=== PATIENT | female | born 1940 | race Caucasian/White ===

== ENCOUNTER 2017-03-15 04:07 | Emergency (ER) | payer OTHER ==
[~2017-03-15] VITALS: Ht 160 cm; Wt 77.1 kg
[2017-03-15] MEDS: KETOROLAC TROMETH 60MG/2ML VIAL IM ONE (05:30)
[2017-03-15 05:42] LABS: Urine RBC None Seen /hpf (0 - 4)
[2017-03-15 05:53] LABS: Urine Bilirubin Negative (Negative); Urine Blood Negative /uL (Negative); Urine Color Yellow (Yellow); Urine Glucose Normal (Normal); Urine Ketone Negative (Negative); Urine Nitrite Negative (Negative); Urine Squamous Epithelial Cell FEW /hpf (<5); Urine Urobilinogen Normal (Negative); Urine pH 7.5 (5.0-8.0)
[2017-03-15] MEDS: HYDROcodone-ACET 10/325MG TAB PO ONE ×2 (06:45→20:11)
[2017-03-15] MEDS: HYDROcodone-ACET 5/325MG TAB ONE (07:36)
[2017-03-15 09:42] LABS: Basophils # (auto) 0 uL; Basophils % (auto) 0.2 % (0.0-2.0); CONDITION Y; Eosinophils # (auto) 0.1 uL; Eosinophils % (auto) 0.8 % (0.0-7.0); Hematocrit 42.5 % (36.0-46.0); Hemoglobin 14.1 g/dL (12.2-16.2); Lymphocytes # (auto) 1.1 uL; Lymphocytes % (auto) 9.8 % (10.0-50.0); Mean Corpuscular Hemoglobin 28.7 pg (28.0-32.0); Mean Corpuscular Volume 86.9 fL (80.0-100.0); Mean Platelet Volume 7.9 fL (7.4-10.4); Monocytes # (auto) 0.7 uL; Monocytes % (auto) 6.5 % (0.0-12.0); Neutrophils # (auto) 9.2 uL; Neutrophils % (auto) 82.7 % (37.0-80.0); Platelet Count (auto) 240 10^3/uL (140-450); Red Cell Distribution Width 13.6 % (11.6-16.0); White Blood Cell 11.2 10^3/uL (4.4-10.8)
[2017-03-15 09:51] LABS: Albumin 3.6 g/dL (3.4-5.0); BUN/Creatinine Ratio 20.9; Bilirubin, Total 0.6 mg/dL (0.2-1.0); INR 0.99 (0.9-1.15); Partial Thromboplastin Time 24.3 sec (22.64-33.71); Potassium 3.5 mmol/L (3.5-5.1); Prothrombin Time 10.8 sec (9.37-12.3); Total Protein 6.6 g/dL (6.4-8.2)
[2017-03-15] MEDS: SODIUM CHLORIDE 0.9% 1,000 ML IV ONE (10:00)
[2017-03-15] MEDS: MORPHINE SULF INJ 2 MG/ML SYRINGE 1ML IV ONE ×2 (10:00→15:41)
[2017-03-15] MEDS: ONDANSETRON HCL 4 MG/2 ML VIAL IV ONE (10:00)
[2017-03-15] MEDS ORDERED: LOVA40TA72 PO (10:28)
[2017-03-15] MEDS ORDERED: METO25TA3 PO (10:28)
[2017-03-15] MEDS ORDERED: DYA375C PO (10:28)
[2017-03-15] MEDS ORDERED: FLUO40CA PO (10:28)
[2017-03-15] MEDS ORDERED: LISI40TA PO (10:28)
[2017-03-15] MEDS: PROMETHAZINE HCL 25 MG/ML 1ML IV ONE (15:41)
[2017-03-16] MEDS: MORPHINE SULFATE 4 MG/ML SYRG IV ONE (01:47)
[2017-03-16] MEDS: ONDANSETRON HCL 4 MG/2 ML VIAL IV ONE (01:48)
[2017-03-16 03:26] VITALS: BP 101/48
[2017-03-16] MEDS: HYDROcodone-ACET 10/325MG TAB PO ONE (03:32)
== END 2017-03-16 03:51 | disposition short-term general hospital, planned readmission (82) ==
LOC: ER 04:07 → EDBD 04:07 → ER 03-16 03:51
DX: S32.029A Unspecified fracture of second lumbar vertebra, initial encounter for closed fracture (principal); N39.0 Urinary tract infection, site not specified; E78.5 Hyperlipidemia, unspecified; I10 Essential (primary) hypertension; F17.210 Nicotine dependence, cigarettes, uncomplicated; W18.39XA Other fall on same level, initial encounter; Y93.89 Activity, other specified; Y92.89 Other specified places as the place of occurrence of the external cause; Y99.8 Other external cause status
CPT/HCPCS: 36415; 51702; 70450; 71020; 72125; 72128; 72133; 80053; 81001; 85025; 85610; 85730; 93005; 96361; 96372; 96374; 96375; 96376; 99285; J1885; J2270; J2405; J2550; J7030

== ENCOUNTER 2017-09-05 16:30 | Inpatient (IN) | payer OTHER ==
[~2017-09-05] VITALS: Ht 160 cm; Wt 78.8 kg
[~2017-09-05 16:30] MED LIST: DYA375C PO; FLUO40CA PO; LISI40TA PO; LOVA40TA72 PO; METO25TA3 PO
[2017-09-05 22:17] LABS: Albumin 3.2 g/dL (3.4-5.0); Anion Gap 7 (5-15); Blood Urea Nitrogen 12 mg/dL (7-18); Calcium 8.6 mg/dL (8.5-10.1); Carbon Dioxide 29 mmol/L (21-32); Chloride 101 mmol/L (98-107); Potassium 3.5 mmol/L (3.5-5.1); Sodium 137 mmol/L (136-145)
[2017-09-05 22:20] LABS: Alanine Aminotransferase 23 U/L (13-56); Aspartate Aminotransferase 17 U/L (15-37); BUN/Creatinine Ratio 21.1; GFR African American 132 mL/min; GFR Non-African American 109 mL/min; Glucose 106 mg/dL (74-106)
[2017-09-05 22:25] LABS: Alkaline Phosphatase 75 U/L (45-117); Bilirubin, Total 0.6 mg/dL (0.2-1.0); Total Protein 7.2 g/dL (6.4-8.2)
[2017-09-05 22:42] LABS: Basophils # (auto) 0 uL; Basophils % (auto) 0.3 % (0.0-2.0); Eosinophils # (auto) 0 uL; Eosinophils % (auto) 0.3 % (0.0-7.0); Hematocrit 43.9 % (36.0-46.0); Hemoglobin 14.6 g/dL (12.2-16.2); Lymphocytes % (auto) 12.9 % (10.0-50.0); Mean Corpuscular Hemoglobin 28.3 pg (28.0-32.0); Mean Corpuscular Hgb Conc. 33.3 g/dL (32.0-36.0); Mean Corpuscular Volume 84.8 fL (80.0-100.0); Monocytes # (auto) 1.1 uL; Monocytes % (auto) 14.2 % (0.0-12.0); Neutrophils # (auto) 5.8 uL; Neutrophils % (auto) 72.3 % (37.0-80.0); Nucleated Red Blood Cells % 0.1 %; Platelet Count (auto) 193 10^3/uL (140-450); Red Blood Cells 5.17 10^6/uL (4.0-5.20); Red Cell Distribution Width 14.2 % (11.8-14.3)
[2017-09-06] MEDS ORDERED: ALBUTEROL SULF 2.5 MG/0.5ML(0.5%) NEB SOLN NEB ONE (00:15)
[2017-09-06] MEDS ORDERED: IPRATROPIUM BROM 0.5 MG/2.5ML INH SOL NEB ONE (00:15)
[2017-09-06] MEDS ORDERED: methylPREDNISolone SOD SUCC 125 MG/2 ML VL IV ONE (00:15)
[2017-09-06] MEDS ORDERED: cefTRIAXone 1GM/10ml IVPUSH 10 ML IV ONE (00:15)
[2017-09-06] MEDS ORDERED: TEMAZEPAM 15 MG CAP PO PRN (01:15)
[2017-09-06] MEDS ORDERED: HYDROcodone-ACET 5/325MG TAB PO PRN (01:15)
[2017-09-06] MEDS ORDERED: LORazepam 0.5 MG TAB PO PRN (01:15)
[2017-09-06] MEDS ORDERED: ACETAMINOPHEN 500 MG TAB PO PRN (01:15)
[2017-09-06] MEDS ORDERED: ONDANSETRON HCL 4 MG/2 ML VIAL IV PRN (01:15)
[2017-09-06] MEDS ORDERED: ALPRAZolam 0.25 MG TAB PO PRN (04:30)
[2017-09-06] MEDS ORDERED: IPRATROPIUM BROM 0.5 MG/2.5ML INH SOL NEB SCH (06:00)
[2017-09-06] MEDS ORDERED: ALBUTEROL SULF 2.5 MG/0.5ML(0.5%) NEB SOLN NEB SCH (06:00)
[2017-09-06] MEDS: DOXYCYCLINE HYC 100MG/250ML 250 ML IV SCH ×3 (06:26→18:28)
[2017-09-06] MEDS: methylPREDNISolone SOD SUCC 40 MG/ML VL IV SCH ×4 (06:26→21:35)
[2017-09-06] MEDS: IPRATROPIUM BROM 0.5 MG/2.5ML INH SOL NEB SCH ×5 (06:38→22:42)
[2017-09-06] MEDS: ALBUTEROL SULF 2.5 MG/0.5ML(0.5%) NEB SOLN NEB SCH ×5 (06:38→22:42)
[2017-09-06 06:50] LABS: Basophils # (auto) 0 uL; Basophils % (auto) 0.2 % (0.0-2.0); Eosinophils # (auto) 0 uL; Hemoglobin 14.5 g/dL (12.2-16.2); Lymphocytes # (auto) 0.5 uL; Lymphocytes % (auto) 7.8 % (10.0-50.0); Mean Corpuscular Hemoglobin 28.7 pg (28.0-32.0); Mean Corpuscular Hgb Conc. 34.4 g/dL (32.0-36.0); Mean Corpuscular Volume 83.3 fL (80.0-100.0); Monocytes # (auto) 0.1 uL; Monocytes % (auto) 2.2 % (0.0-12.0); Neutrophils # (auto) 5.8 uL; Neutrophils % (auto) 89.8 % (37.0-80.0); Platelet Count (auto) 195 10^3/uL (140-450); Red Blood Cells 5.05 10^6/uL (4.0-5.20); Red Cell Distribution Width 13.6 % (11.8-14.3); White Blood Cell 6.5 10^3/uL (4.4-10.8)
[2017-09-06 06:55] LABS: BUN/Creatinine Ratio 16.7; Potassium 3.5 mmol/L (3.5-5.1)
[2017-09-06] MEDS: LISINOPRIL 20 MG TAB PO SCH (10:00)
[2017-09-06 10:22] VITALS: BP 129/78
[2017-09-06] MEDS: METOPROLOL SUCCINATE XL 50 MG TAB PO SCH (10:44)
[2017-09-06 14:57] VITALS: BP 124/62
[2017-09-06] MEDS: BUDESONIDE (INHALATION) 0.5 MG/2 ML NEB NEB SCH (19:17)
[2017-09-06] MEDS: OSELTAMIVIR 30 MG CAP PO SCH (21:36)
[2017-09-06 22:14] VITALS: BP 133/80
[2017-09-07] MEDS: IPRATROPIUM BROM 0.5 MG/2.5ML INH SOL NEB SCH ×6 (02:38→22:15)
[2017-09-07] MEDS: ALBUTEROL SULF 2.5 MG/0.5ML(0.5%) NEB SOLN NEB SCH ×4 (02:38→13:47)
[2017-09-07 05:00] VITALS: BP 125/57
[2017-09-07] MEDS: BUDESONIDE (INHALATION) 0.5 MG/2 ML NEB NEB SCH ×2 (05:39→19:05)
[2017-09-07] MEDS: DOXYCYCLINE HYC 100MG/250ML 250 ML IV SCH ×2 (05:45→18:58)
[2017-09-07] MEDS: methylPREDNISolone SOD SUCC 40 MG/ML VL IV SCH ×2 (05:45→15:20)
[2017-09-07 08:00] VITALS: BP 134/62
[2017-09-07 09:00] VITALS: BP 134/62
[2017-09-07] MEDS: OSELTAMIVIR 30 MG CAP PO SCH (10:00)
[2017-09-07] MEDS: LISINOPRIL 20 MG TAB PO SCH (10:14)
[2017-09-07] MEDS: METOPROLOL SUCCINATE XL 50 MG TAB PO SCH (10:14)
[2017-09-07 13:00] VITALS: BP 124/61
[2017-09-07] MEDS: LEVALBUTEROL HCL 1.25 MG/0.5 ML NEB SOLN NEB SCH ×2 (14:00→22:15)
[2017-09-07 17:00] VITALS: BP 137/76
[2017-09-07 21:59] VITALS: BP 145/65
[2017-09-07] MEDS: ACETYLCYSTEINE 10 %(100MG/ML) SOL 4ML NEB SCH (22:15)
[2017-09-07] MEDS: methylPREDNISolone SOD SUCC 125 MG/2 ML VL IV SCH (23:09)
[2017-09-08] MEDS: IPRATROPIUM BROM 0.5 MG/2.5ML INH SOL NEB SCH ×6 (02:20→22:46)
[2017-09-08 04:46] VITALS: BP 149/71
[2017-09-08] MEDS: methylPREDNISolone SOD SUCC 125 MG/2 ML VL IV SCH ×3 (05:37→21:34)
[2017-09-08] MEDS: DOXYCYCLINE HYC 100MG/250ML 250 ML IV SCH ×2 (05:37→17:01)
[2017-09-08] MEDS: ACETYLCYSTEINE 10 %(100MG/ML) SOL 4ML NEB SCH ×3 (07:40→22:46)
[2017-09-08] MEDS: BUDESONIDE (INHALATION) 0.5 MG/2 ML NEB NEB SCH ×2 (07:40→19:18)
[2017-09-08] MEDS: LEVALBUTEROL HCL 1.25 MG/0.5 ML NEB SOLN NEB SCH ×2 (07:40→22:00)
[2017-09-08 08:00] VITALS: BP 142/80
[2017-09-08 09:00] VITALS: BP 142/80
[2017-09-08] MEDS: METOPROLOL SUCCINATE XL 50 MG TAB PO SCH (10:42)
[2017-09-08] MEDS: LISINOPRIL 20 MG TAB PO SCH (10:42)
[2017-09-08 13:00] VITALS: BP 131/81
[2017-09-08 17:00] VITALS: BP 152/73
[2017-09-08] MEDS ORDERED: ENOXAPARIN SOD 40 MG/0.4 ML SYRINGE SC ONE (18:00)
[2017-09-08 22:12] VITALS: BP 144/72
[2017-09-09] VITALS (8 sets, daily range): BP systolic 138–157; BP diastolic 61–78
[2017-09-09] MEDS: IPRATROPIUM BROM 0.5 MG/2.5ML INH SOL NEB SCH ×6 (02:24→22:45)
[2017-09-09 06:09] LABS: Basophils # (auto) 0 uL; Basophils % (auto) 0.2 % (0.0-2.0); Eosinophils # (auto) 0 uL; Hematocrit 40.7 % (36.0-46.0); Hemoglobin 13.5 g/dL (12.2-16.2); Lymphocytes # (auto) 0.7 uL; Lymphocytes % (auto) 5.3 % (10.0-50.0); Mean Corpuscular Hemoglobin 27.6 pg (28.0-32.0); Mean Corpuscular Volume 83.7 fL (80.0-100.0); Monocytes # (auto) 0.7 uL; Monocytes % (auto) 5.4 % (0.0-12.0); Neutrophils # (auto) 11.3 uL; Neutrophils % (auto) 89.1 % (37.0-80.0); Nucleated Red Blood Cells % 0.1 %; Platelet Count (auto) 273 10^3/uL (140-450); Red Blood Cells 4.86 10^6/uL (4.0-5.20); Red Cell Distribution Width 13.9 % (11.8-14.3); White Blood Cell 12.7 10^3/uL (4.4-10.8)
[2017-09-09 06:20] LABS: INR 1.04 (0.9-1.15); Partial Thromboplastin Time 25.4 sec (22.64-33.71); Prothrombin Time 11.3 sec (9.37-12.3)
[2017-09-09 06:25] LABS: BUN/Creatinine Ratio 31.6; Calcium 8.9 mg/dL (8.5-10.1); Potassium 3.5 mmol/L (3.5-5.1)
[2017-09-09] MEDS: methylPREDNISolone SOD SUCC 125 MG/2 ML VL IV SCH ×3 (06:46→22:05)
[2017-09-09] MEDS: DOXYCYCLINE HYC 100MG/250ML 250 ML IV SCH ×2 (06:46→17:31)
[2017-09-09] MEDS: ACETYLCYSTEINE 10 %(100MG/ML) SOL 4ML NEB SCH ×3 (07:46→22:45)
[2017-09-09] MEDS: LEVALBUTEROL HCL 1.25 MG/0.5 ML NEB SOLN NEB SCH ×3 (07:47→22:45)
[2017-09-09] MEDS: ENOXAPARIN SOD 40 MG/0.4 ML SYRINGE SC SCH (10:05)
[2017-09-09] MEDS: METOPROLOL SUCCINATE XL 50 MG TAB PO SCH (10:06)
[2017-09-09] MEDS: LISINOPRIL 20 MG TAB PO SCH (10:07)
[2017-09-09] MEDS: BUDESONIDE (INHALATION) 0.5 MG/2 ML NEB NEB SCH ×2 (12:07→18:26)
[2017-09-10] VITALS (7 sets, daily range): BP systolic 124–148; BP diastolic 61–89
[2017-09-10] MEDS: IPRATROPIUM BROM 0.5 MG/2.5ML INH SOL NEB SCH ×6 (02:45→22:45)
[2017-09-10] MEDS: DOXYCYCLINE HYC 100MG/250ML 250 ML IV SCH ×2 (06:03→18:02)
[2017-09-10] MEDS: methylPREDNISolone SOD SUCC 125 MG/2 ML VL IV SCH ×3 (06:03→22:22)
[2017-09-10] MEDS: BUDESONIDE (INHALATION) 0.5 MG/2 ML NEB NEB SCH ×2 (06:27→22:45)
[2017-09-10] MEDS: LEVALBUTEROL HCL 1.25 MG/0.5 ML NEB SOLN NEB SCH ×3 (06:27→22:45)
[2017-09-10] MEDS: ACETYLCYSTEINE 10 %(100MG/ML) SOL 4ML NEB SCH ×3 (06:27→22:45)
[2017-09-10] MEDS: ENOXAPARIN SOD 40 MG/0.4 ML SYRINGE SC SCH (09:25)
[2017-09-10] MEDS: METOPROLOL SUCCINATE XL 50 MG TAB PO SCH (09:25)
[2017-09-10] MEDS: LISINOPRIL 20 MG TAB PO SCH (09:26)
[2017-09-10] MEDS ORDERED: guaiFENesin 200 MG/10 ML UD PO PRN (14:45)
[2017-09-11] MEDS: IPRATROPIUM BROM 0.5 MG/2.5ML INH SOL NEB SCH ×4 (02:00→13:57)
[2017-09-11 05:26] VITALS: BP 134/79
[2017-09-11] MEDS: methylPREDNISolone SOD SUCC 125 MG/2 ML VL IV SCH ×2 (06:04→14:24)
[2017-09-11] MEDS: DOXYCYCLINE HYC 100MG/250ML 250 ML IV SCH (06:04)
[2017-09-11] MEDS: LEVALBUTEROL HCL 1.25 MG/0.5 ML NEB SOLN NEB SCH ×2 (06:14→13:57)
[2017-09-11] MEDS: ACETYLCYSTEINE 10 %(100MG/ML) SOL 4ML NEB SCH ×2 (06:14→13:57)
[2017-09-11 06:40] LABS: Hematocrit 43.9 % (36.0-46.0); Hemoglobin 14.5 g/dL (12.2-16.2); Mean Corpuscular Hemoglobin 27.8 pg (28.0-32.0); Mean Corpuscular Volume 84.3 fL (80.0-100.0); Platelet Count (auto) 353 10^3/uL (140-450); Red Blood Cells 5.21 10^6/uL (4.0-5.20); Red Cell Distribution Width 13.8 % (11.8-14.3)
[2017-09-11 06:54] LABS: Band Neutrophils % (manual) 0; Basophils % (manual) 0 (0.0-2.0); Blast Cells 0; Eosinophils % (manual) 0 (0-7); Metamyelocytes % 0; Myelocytes % 0; Promyelocytes % 0
[2017-09-11 06:55] LABS: BUN/Creatinine Ratio 36.5; Calcium 8.8 mg/dL (8.5-10.1); Magnesium 2.2 mg/dL (1.6-2.6); Potassium 3.6 mmol/L (3.5-5.1)
[2017-09-11 07:56] LABS: Lymphocytes % (manual) 8 (10.0-50.0); Monocytes % (manual) 3 (0-12); Reactive Lymphocytes 2
[2017-09-11 08:00] VITALS: BP 132/65
[2017-09-11 09:00] VITALS: BP 159/90
[2017-09-11] MEDS ORDERED: SULFAMETHOX W/TRIMETH(800/160MG) DS TAB PO ONE (09:30)
[2017-09-11] MEDS: BUDESONIDE (INHALATION) 0.5 MG/2 ML NEB NEB SCH (09:42)
[2017-09-11] MEDS: METOPROLOL SUCCINATE XL 50 MG TAB PO SCH (10:27)
[2017-09-11] MEDS: ENOXAPARIN SOD 40 MG/0.4 ML SYRINGE SC SCH (10:28)
[2017-09-11] MEDS: LISINOPRIL 20 MG TAB PO SCH (10:28)
[2017-09-11 11:13] VITALS: BP 159/90
[2017-09-11 13:00] VITALS: BP 165/85
[2017-09-11] MEDS ORDERED: cefTAZidime 1 GM in SODIUM CHL 0.9% 50 ML IV SCH (18:00)
[2017-09-11] MEDS ORDERED: cefTAZidime 2GM/NS 50 ML IV SCH (22:00)
== END 2017-09-11 15:01 | disposition home health service (06) | DRG 189 ==
LOC: ER 16:30 → EDBD 16:30 → OVERFLOW 16:31 → ER 21:08 → EAST 09-06 15:04
PROVIDERS: ADMIT Nurse Practitioner Family; ATTEND Hospitalist
DX: J96.01 Acute respiratory failure with hypoxia (principal); J44.0 Chronic obstructive pulmonary disease with (acute) lower respiratory infection; J44.1 Chronic obstructive pulmonary disease with (acute) exacerbation; E78.5 Hyperlipidemia, unspecified; F32.9 Major depressive disorder, single episode, unspecified; F41.9 Anxiety disorder, unspecified; I10 Essential (primary) hypertension; I70.0 Atherosclerosis of aorta; J20.9 Acute bronchitis, unspecified; M85.80 Other specified disorders of bone density and structure, unspecified site; Z87.891 Personal history of nicotine dependence; Z79.899 Other long term (current) drug therapy
CPT/HCPCS: 36415; 36600; 71045; 71275; 80048; 80053; 82805; 83735; 84484; 85007; 85025; 85027; 85610; 85730; 87070; 87077; 87186; 87205; 87400; 87880; 93005; 94640; 96374; 96375; 97163; G9035; J0713; J3490

== ENCOUNTER 2017-10-08 08:27 | Inpatient (IN) | payer OTHER ==
[~2017-10-08] VITALS: Ht 160 cm; Wt 73.4 kg
[2017-10-08 09:45] LABS: Urine Amorphous Crystal FEW /hpf (None Seen); Urine Bacteria NONE SEEN /hpf (None Seen); Urine Blood Negative /uL (Negative); Urine Specific Gravity 1.017 (1.001-1.035); Urine WBC 3 /hpf (0 - 5)
[2017-10-08 09:48] LABS: Basophils # (auto) 0 uL; Basophils % (auto) 0.3 % (0.0-2.0); Eosinophils # (auto) 0 uL; Eosinophils % (auto) 0.2 % (0.0-7.0); Hematocrit 40.5 % (36.0-46.0); Hemoglobin 13.1 g/dL (12.2-16.2); Lymphocytes % (auto) 8.5 % (10.0-50.0); Mean Corpuscular Hemoglobin 27.5 pg (28.0-32.0); Mean Corpuscular Hgb Conc. 32.3 g/dL (32.0-36.0); Mean Corpuscular Volume 85.3 fL (80.0-100.0); Monocytes # (auto) 0.9 uL; Monocytes % (auto) 8.1 % (0.0-12.0); Neutrophils # (auto) 9.5 uL; Neutrophils % (auto) 82.9 % (37.0-80.0); Platelet Count (auto) 164 10^3/uL (140-450); Red Blood Cells 4.74 10^6/uL (4.0-5.20); Red Cell Distribution Width 14.9 % (11.8-14.3); White Blood Cell 11.4 10^3/uL (4.4-10.8)
[2017-10-08] MEDS: ALBUTEROL SULF 2.5 MG/0.5ML(0.5%) NEB SOLN NEB ONE ×2 (09:53→10:20)
[2017-10-08 10:06] LABS: Albumin 3.1 g/dL (3.4-5.0); Calcium 8.9 mg/dL (8.5-10.1); Potassium 3.6 mmol/L (3.5-5.1)
[2017-10-08 10:09] LABS: BUN/Creatinine Ratio 17.9
[2017-10-08 10:10] LABS: Bilirubin, Total 0.6 mg/dL (0.2-1.0); Total Protein 6.5 g/dL (6.4-8.2)
[2017-10-08] MEDS ORDERED: ENOXAPARIN SOD 80 MG/0.8ML SYRINGE SC ONE (11:15)
[2017-10-08] MEDS ORDERED: ACETAMINOPHEN 325 MG TAB PO ONE (15:31)
[2017-10-08] MEDS ORDERED: cefTRIAXone 1GM/10ml IVPUSH 10 ML IV ONE (16:15)
[2017-10-08] MEDS ORDERED: HEPARIN SODIUM (PORCINE) 5000 UNITS/ML 1ML VIAL IV ONE (17:00)
[2017-10-08] MEDS ORDERED: HEPARIN DRIP/D5W 100UNITS/ML 250 ML IV SCH (17:00)
[2017-10-08] MEDS ORDERED: MORPHINE SULFATE 4 MG/ML SYR/VIAL IV PRN ×2 (17:15)
[2017-10-08] MEDS ORDERED: NITROGLYCERIN 0.4 MG SL TAB SL PRN (17:15)
[2017-10-08] MEDS ORDERED: HYDROcodone-ACET 5/325MG TAB PO PRN (17:15)
[2017-10-08] MEDS ORDERED: DEXTROSE (50%) 50ML SYRG IV PRN (17:15)
[2017-10-08] MEDS ORDERED: TEMAZEPAM 15 MG CAP PO PRN (17:15)
[2017-10-08] MEDS ORDERED: DOCUSATE SOD 100 MG CAP PO PRN (17:15)
[2017-10-08] MEDS ORDERED: ONDANSETRON HCL 4 MG/2 ML VIAL IV PRN (17:15)
[2017-10-08 19:36] LABS: Prothrombin Time 10.9 sec (9.37-12.3)
[2017-10-08 19:44] LABS: Partial Thromboplastin Time 82.3 sec (22.64-33.71)
[2017-10-08 20:30] VITALS: BP 144/73
[2017-10-08] MEDS: ACETAMINOPHEN 325 MG TAB PO PRN (20:42)
[2017-10-08 21:57] VITALS: BP 152/100
[2017-10-08] MEDS: SODIUM CHLOR 0.9% PF (SALINE LOCK) 10ML VIAL IV SCH (21:57)
[2017-10-08] MEDS: FAMOTIDINE 20 MG TAB PO SCH (21:57)
[2017-10-08] MEDS: ACCU-CHEK COMFORT CURVE STRIP VI SCH (21:57)
[2017-10-08] MEDS: InsuLIN REG 1unit/0.01ml Soln (100units/ml) SC SCH (21:57)
[2017-10-08 21:58] VITALS: BP 145/71
[2017-10-08] MEDS ORDERED: ATORVASTATIN 20 MG TAB PO SCH (22:00)
[2017-10-08] MEDS ORDERED: ALBUAER3 IN (23:05)
[2017-10-08] MEDS ORDERED: ALPR0.254 PO (23:05)
[2017-10-08 23:20] VITALS: BP 145/71
[2017-10-09] MEDS: ALBUTEROL SULF 2.5 MG/0.5ML(0.5%) NEB SOLN NEB SCH ×3 (00:20→13:20)
[2017-10-09] MEDS: IPRATROPIUM BROM 0.5 MG/2.5ML INH SOL NEB SCH ×3 (00:20→13:20)
[2017-10-09 00:35] LABS: INR 0.96 (0.9-1.15); Partial Thromboplastin Time 29.3 sec (22.64-33.71); Prothrombin Time 10.5 sec (9.37-12.3)
[2017-10-09] MEDS ORDERED: HEPARIN SODIUM (PORCINE) 5000 UNITS/ML 1ML VIAL IV ONE ×2 (01:00→08:45)
[2017-10-09 05:03] VITALS: BP 135/75
[2017-10-09] MEDS: SODIUM CHLOR 0.9% PF (SALINE LOCK) 10ML VIAL IV SCH ×2 (06:39→14:43)
[2017-10-09] MEDS: InsuLIN REG 1unit/0.01ml Soln (100units/ml) SC SCH ×2 (06:39→12:47)
[2017-10-09] MEDS: ACCU-CHEK COMFORT CURVE STRIP VI SCH ×2 (06:39→12:47)
[2017-10-09 07:12] LABS: Basophils # (auto) 0 uL; Basophils % (auto) 0.2 % (0.0-2.0); Eosinophils # (auto) 0.1 uL; Eosinophils % (auto) 0.6 % (0.0-7.0); Hematocrit 37.2 % (36.0-46.0); Hemoglobin 12.4 g/dL (12.2-16.2); INR 0.95 (0.9-1.15); Lymphocytes # (auto) 1.3 uL; Mean Corpuscular Hemoglobin 28.2 pg (28.0-32.0); Mean Corpuscular Hgb Conc. 33.4 g/dL (32.0-36.0); Mean Corpuscular Volume 84.5 fL (80.0-100.0); Monocytes # (auto) 0.9 uL; Monocytes % (auto) 9.6 % (0.0-12.0); Neutrophils % (auto) 75.6 % (37.0-80.0); Nucleated Red Blood Cells % 0.1 %; Partial Thromboplastin Time 28.7 sec (22.64-33.71); Platelet Count (auto) 175 10^3/uL (140-450); Prothrombin Time 10.4 sec (9.37-12.3); White Blood Cell 9.3 10^3/uL (4.4-10.8)
[2017-10-09 07:20] LABS: Albumin 2.8 g/dL (3.4-5.0); BUN/Creatinine Ratio 16.1; Bilirubin, Total 0.5 mg/dL (0.2-1.0); Calcium 8.4 mg/dL (8.5-10.1); Potassium 3.8 mmol/L (3.5-5.1); Total Protein 6.4 g/dL (6.4-8.2)
[2017-10-09] MEDS ORDERED: cefTRIAXone 1GM/10ml IVPUSH 10 ML IV SCH (09:00)
[2017-10-09] MEDS ORDERED: HEPARIN DRIP/D5W 100UNITS/ML 250 ML IV SCH (09:00)
[2017-10-09 09:18] VITALS: BP 137/74
[2017-10-09] MEDS ORDERED: MULTIPLE VITAMIN TAB PO SCH (10:00)
[2017-10-09] MEDS ORDERED: FLUoxetine HCL 20 MG CAP PO SCH (10:00)
[2017-10-09] MEDS: FAMOTIDINE 20 MG TAB PO SCH (10:42)
[2017-10-09] MEDS ORDERED: WARFARIN SODIUM 5 MG TAB PO ONE (11:30)
[2017-10-09] MEDS ORDERED: WARPRX PO (11:30)
[2017-10-09] MEDS ORDERED: ENOX80IN SC (11:30)
[2017-10-09] MEDS ORDERED: IOHEXOL 350 MG/ML 100ML IJ ONE (11:34)
[2017-10-09] MEDS: ACETAMINOPHEN 325 MG TAB PO PRN (12:47)
[2017-10-09 13:23] VITALS: BP 118/68
[2017-10-09 15:13] LABS: INR 0.97 (0.9-1.15); Partial Thromboplastin Time 41.1 sec (22.64-33.71); Prothrombin Time 10.6 sec (9.37-12.3)
[2017-10-09] MEDS ORDERED: NITR-48 PO (15:23)
[2017-10-09] MEDS ORDERED: ENOXAPARIN SOD 80 MG/0.8ML SYRINGE SC ONE (15:45)
[2017-10-09 15:46] VITALS: BP 118/68
[2017-10-09 16:58] VITALS: BP 114/57
[2017-10-10] MEDS ORDERED: INFLUENZA QUAD 2017-2018 0.5 ML SYRG IM ONE (10:00)
== END 2017-10-09 17:07 | disposition home health service (06) | DRG 299 ==
LOC: ER 08:29 → TELE 08:30 → TELE-EAST 20:23
PROVIDERS: ADMIT Internal Medicine; ATTEND Internal Medicine
DX: I82.411 Acute embolism and thrombosis of right femoral vein (principal); I26.99 Other pulmonary embolism without acute cor pulmonale; E44.0 Moderate protein-calorie malnutrition; J96.10 Chronic respiratory failure, unspecified whether with hypoxia or hypercapnia; D68.59 Other primary thrombophilia; L03.115 Cellulitis of right lower limb; J44.9 Chronic obstructive pulmonary disease, unspecified; Z99.81 Dependence on supplemental oxygen; N39.0 Urinary tract infection, site not specified; I82.441 Acute embolism and thrombosis of right tibial vein; E78.5 Hyperlipidemia, unspecified; F32.9 Major depressive disorder, single episode, unspecified; G89.29 Other chronic pain; I10 Essential (primary) hypertension; M54.9 Dorsalgia, unspecified; Z88.1 Allergy status to other antibiotic agents; R91.8 Other nonspecific abnormal finding of lung field; F41.9 Anxiety disorder, unspecified; Z87.891 Personal history of nicotine dependence; Z79.899 Other long term (current) drug therapy; Z82.49 Family history of ischemic heart disease and other diseases of the circulatory system; Z80.8 Family history of malignant neoplasm of other organs or systems; Z68.28 Body mass index [BMI] 28.0-28.9, adult; Z71.89 Other specified counseling
CPT/HCPCS: 36415; 71250; 71275; 80053; 81001; 82962; 83036; 84443; 85025; 85610; 85730; 87040; 87081; 87086; 93005; 93971; 94640; 96365; 96372; 96375; J1815

== ENCOUNTER 2017-10-10 18:53 | Emergency (ER) | payer OTHER ==
[~2017-10-10] VITALS: Ht 160 cm; Wt 70.3 kg
[~2017-10-10 18:53] MED LIST changes: +ALBUAER3 IN; +ALPR0.254 PO; +ENOX80IN SC; +NITR-48 PO; +WARPRX PO
[2017-10-10 20:59] LABS: Basophils # (auto) 0.1 uL; Basophils % (auto) 1.1 % (0.0-2.0); Eosinophils # (auto) 0.1 uL; Eosinophils % (auto) 0.8 % (0.0-7.0); Hematocrit 40.1 % (36.0-46.0); Hemoglobin 12.9 g/dL (12.2-16.2); Lymphocytes # (auto) 1.7 uL; Mean Corpuscular Hemoglobin 27.6 pg (28.0-32.0); Mean Corpuscular Hgb Conc. 32.3 g/dL (32.0-36.0); Mean Corpuscular Volume 85.6 fL (80.0-100.0); Monocytes # (auto) 0.8 uL; Monocytes % (auto) 9.5 % (0.0-12.0); Neutrophils # (auto) 6.2 uL; Neutrophils % (auto) 69.6 % (37.0-80.0); Platelet Count (auto) 261 10^3/uL (140-450); Red Blood Cells 4.68 10^6/uL (4.0-5.20); Red Cell Distribution Width 14.9 % (11.8-14.3); White Blood Cell 8.9 10^3/uL (4.4-10.8)
[2017-10-10 21:20] LABS: INR 1.05 (0.9-1.15); Partial Thromboplastin Time 32.7 sec (22.64-33.71); Prothrombin Time 11.4 sec (9.37-12.3)
[2017-10-10 21:22] LABS: Albumin 3.1 g/dL (3.4-5.0); BUN/Creatinine Ratio 21.6; Calcium 9.2 mg/dL (8.5-10.1)
[2017-10-10 21:23] LABS: Bilirubin, Total 0.3 mg/dL (0.2-1.0); Total Protein 7.2 g/dL (6.4-8.2)
[2017-10-11] MEDS ORDERED: VANCOMYCIN 1GM/250ML 250 ML IV ONE (00:45)
[2017-10-11 03:00] VITALS: BP 136/73
== END 2017-10-11 03:40 | disposition home or self-care (01) ==
LOC: ER 18:53
DX: L03.115 Cellulitis of right lower limb (principal); I82.401 Acute embolism and thrombosis of unspecified deep veins of right lower extremity; Z87.891 Personal history of nicotine dependence
CPT/HCPCS: 36415; 80053; 85025; 85610; 85730; 93970; 96365; 99285; J3370

== ENCOUNTER 2017-11-12 13:19 | Inpatient (IN) | payer OTHER ==
[~2017-11-12] VITALS: Ht 160 cm; Wt 74.9 kg
[2017-11-12 14:28] LABS: Basophils # (auto) 0 uL; Basophils % (auto) 0.1 % (0.0-2.0); Eosinophils # (auto) 0 uL; Hematocrit 42.2 % (36.0-46.0); Hemoglobin 13.7 g/dL (12.2-16.2); Lymphocytes # (auto) 0.5 uL; Lymphocytes % (auto) 2.1 % (10.0-50.0); Mean Corpuscular Hemoglobin 27.7 pg (28.0-32.0); Mean Corpuscular Hgb Conc. 32.6 g/dL (32.0-36.0); Mean Corpuscular Volume 85.1 fL (80.0-100.0); Monocytes # (auto) 1.5 uL; Monocytes % (auto) 7.1 % (0.0-12.0); Neutrophils # (auto) 19.2 uL; Neutrophils % (auto) 90.7 % (37.0-80.0); Platelet Count (auto) 211 10^3/uL (140-450); Red Blood Cells 4.95 10^6/uL (4.0-5.20); Red Cell Distribution Width 15.4 % (11.8-14.3); White Blood Cell 21.2 10^3/uL (4.4-10.8)
[2017-11-12 14:45] LABS: Alanine Aminotransferase 20 U/L (13-56); Albumin 3.3 g/dL (3.4-5.0); Alkaline Phosphatase 68 U/L (45-117); Anion Gap 11 (5-15); Aspartate Aminotransferase 16 U/L (15-37); BUN/Creatinine Ratio 17.1; Bilirubin, Total 0.8 mg/dL (0.2-1.0); Blood Urea Nitrogen 13 mg/dL (7-18); Calcium 8.5 mg/dL (8.5-10.1); Carbon Dioxide 23 mmol/L (21-32); Chloride 99 mmol/L (98-107); GFR African American 95 mL/min; GFR Non-African American 78 mL/min; Glucose 123 mg/dL (74-106); Magnesium 2.3 mg/dL (1.6-2.6); Potassium 3.2 mmol/L (3.5-5.1); Sodium 133 mmol/L (136-145); Total Protein 6.9 g/dL (6.4-8.2)
[2017-11-12] MEDS ORDERED: PIPERACILLIN-TAZOB 3.375GM 50 ML IV ONE (16:00)
[2017-11-12 16:53] LABS: INR 1.72 (0.9-1.15); Prothrombin Time 18.9 sec (9.37-12.3)
[2017-11-12 17:53] LABS: Lactic Acid w/Reflex 2.1 mmol/L (0.4-2.0)
[2017-11-12 20:37] LABS: Urine Bacteria NONE SEEN /hpf (None Seen); Urine Blood 1+ /uL (Negative); Urine Hyaline Cast FEW /lpf (0 - 2); Urine Specific Gravity 1.024 (1.001-1.035); Urine WBC 18 /hpf (0 - 5)
[2017-11-12] MEDS ORDERED: SODIUM CHLORIDE 0.9% 1,000 ML IV ONE (21:00)
[2017-11-12] MEDS ORDERED: PANTOPRAZOLE 40 MG/10 ML VIAL IV ONE (21:00)
[2017-11-12] MEDS ORDERED: TEMAZEPAM 15 MG CAP PO PRN (21:00)
[2017-11-12] MEDS ORDERED: NITROGLYCERIN 0.4 MG SL TAB SL PRN (21:00)
[2017-11-12] MEDS ORDERED: VANCOMYCIN PER PHARMACY 0 MG IV SCH (21:00)
[2017-11-12] MEDS ORDERED: MORPHINE SULFATE 4 MG/ML SYR/VIAL IV PRN (21:00)
[2017-11-12] MEDS ORDERED: ACETAMINOPHEN 325 MG TAB PO PRN (21:00)
[2017-11-12] MEDS ORDERED: ONDANSETRON HCL 4 MG/2 ML VIAL IV PRN (21:00)
[2017-11-12] MEDS: SODIUM CHLORIDE 0.9% 1,000 ML IV SCH (22:00)
[2017-11-12] MEDS: ATORVASTATIN 20 MG TAB PO SCH (22:00)
[2017-11-12] MEDS: LISINOPRIL 20 MG TAB PO SCH (22:00)
[2017-11-12] MEDS ORDERED: VANCOMYCIN 1GM/250ML 250 ML IV SCH (22:00)
[2017-11-12] MEDS: metroNIDAZOLE 500MG/100ML 100 ML IV SCH (22:00)
[2017-11-13] MEDS: metroNIDAZOLE 500MG/100ML 100 ML IV SCH ×3 (05:45→21:19)
[2017-11-13 05:59] LABS: Basophils # (auto) 0 uL; Basophils % (auto) 0.2 % (0.0-2.0); Eosinophils # (auto) 0 uL; Eosinophils % (auto) 0.3 % (0.0-7.0); Hematocrit 36.1 % (36.0-46.0); Lymphocytes # (auto) 1.2 uL; Lymphocytes % (auto) 8.2 % (10.0-50.0); Mean Corpuscular Hemoglobin 28.3 pg (28.0-32.0); Mean Corpuscular Hgb Conc. 33.2 g/dL (32.0-36.0); Mean Corpuscular Volume 85.3 fL (80.0-100.0); Monocytes # (auto) 1.4 uL; Monocytes % (auto) 9.5 % (0.0-12.0); Neutrophils # (auto) 11.9 uL; Neutrophils % (auto) 81.8 % (37.0-80.0); Platelet Count (auto) 192 10^3/uL (140-450); Red Blood Cells 4.24 10^6/uL (4.0-5.20); Red Cell Distribution Width 15.5 % (11.8-14.3); White Blood Cell 14.5 10^3/uL (4.4-10.8)
[2017-11-13] MEDS: PIPERACILLIN-TAZOB 3.375GM 50 ML IV SCH ×4 (06:00→21:18)
[2017-11-13 06:27] LABS: Albumin 2.5 g/dL (3.4-5.0); BUN/Creatinine Ratio 17.2; Bilirubin, Total 0.9 mg/dL (0.2-1.0); Total Protein 5.7 g/dL (6.4-8.2)
[2017-11-13 06:31] LABS: Potassium 2.9 mmol/L (3.5-5.1)
[2017-11-13] MEDS ORDERED: POTASSIUM CHL 20 Meq TABLET PO ONE (07:00)
[2017-11-13 07:33] LABS: INR 1.83 (0.9-1.15); Partial Thromboplastin Time 38.2 sec (22.64-33.71); Prothrombin Time 20.1 sec (9.37-12.3)
[2017-11-13 09:00] VITALS: BP 105/63
[2017-11-13] MEDS: METOPROLOL SUCCINATE XL 50 MG TAB PO SCH (10:00)
[2017-11-13] MEDS: LISINOPRIL 20 MG TAB PO SCH ×2 (10:00→21:19)
[2017-11-13] MEDS: PANTOPRAZOLE 40 MG/10 ML VIAL IV SCH ×2 (10:04→21:19)
[2017-11-13 10:06] LABS: INR 1.87 (0.9-1.15); Partial Thromboplastin Time 35.9 sec (22.64-33.71); Prothrombin Time 20.5 sec (9.37-12.3)
[2017-11-13] MEDS: HYDROcodone-ACET 5/325MG TAB PO PRN (10:11)
[2017-11-13 10:17] LABS: Albumin 2.8 g/dL (3.4-5.0); BUN/Creatinine Ratio 15.1; Bilirubin, Total 0.8 mg/dL (0.2-1.0); Calcium 8.2 mg/dL (8.5-10.1); Potassium 3.3 mmol/L (3.5-5.1); Total Protein 6.4 g/dL (6.4-8.2)
[2017-11-13] MEDS: SODIUM CHLORIDE 0.9% 1,000 ML IV SCH (10:30)
[2017-11-13] MEDS ORDERED: HYDR-4069 PO (10:42)
[2017-11-13 12:00] VITALS: BP 97/56
[2017-11-13] MEDS ORDERED: POTASSIUM CHLORIDE 40 MEQ, LIDOCAINE 1% (LOCAL ANESTH.) 4 ML in SODIUM CHL 0.9% 100 ML IV ONE (12:00)
[2017-11-13] MEDS: HYOSCYAMINE SULF 0.125 MG TAB PO PRN ×2 (14:19→20:31)
[2017-11-13] MEDS ORDERED: WARFARIN SODIUM 5 MG TAB PO ONE (17:00)
[2017-11-13 17:01] VITALS: BP 91/57
[2017-11-13] MEDS: ALBUTEROL SULF 2.5 MG/0.5ML(0.5%) NEB SOLN NEB PRN (20:37)
[2017-11-13] MEDS: ATORVASTATIN 20 MG TAB PO SCH (21:19)
[2017-11-13 22:56] VITALS: BP 88/50
[2017-11-13] MEDS ORDERED: VANCOMYCIN 1GM/250ML 250 ML IV SCH (23:00)
[2017-11-14] MEDS ORDERED: SODIUM CHLORIDE 0.9% 500 ML IV ONE (00:15)
[2017-11-14] MEDS: PIPERACILLIN-TAZOB 3.375GM 50 ML IV SCH (03:14)
[2017-11-14] MEDS: SODIUM CHLORIDE 0.9% 1,000 ML IV SCH ×3 (03:23→17:08)
[2017-11-14 04:21] VITALS: BP 88/50
[2017-11-14 05:18] VITALS: BP 81/54
[2017-11-14] MEDS: metroNIDAZOLE 500MG/100ML 100 ML IV SCH (05:54)
[2017-11-14 08:02] LABS: BUN/Creatinine Ratio 15.8; Calcium 8.1 mg/dL (8.5-10.1); Magnesium 2.2 mg/dL (1.6-2.6); Potassium 3.3 mmol/L (3.5-5.1)
[2017-11-14 08:03] LABS: INR 2.45 (0.9-1.15); Partial Thromboplastin Time 39.5 sec (22.64-33.71)
[2017-11-14 08:11] LABS: Basophils # (auto) 0 uL; Basophils % (auto) 0.5 % (0.0-2.0); Eosinophils # (auto) 0.2 uL; Eosinophils % (auto) 2.5 % (0.0-7.0); Hematocrit 35.2 % (36.0-46.0); Hemoglobin 11.7 g/dL (12.2-16.2); Lymphocytes # (auto) 1.3 uL; Lymphocytes % (auto) 15.2 % (10.0-50.0); Mean Corpuscular Hemoglobin 28.3 pg (28.0-32.0); Mean Corpuscular Hgb Conc. 33.1 g/dL (32.0-36.0); Mean Corpuscular Volume 85.5 fL (80.0-100.0); Monocytes # (auto) 0.7 uL; Monocytes % (auto) 8.3 % (0.0-12.0); Neutrophils # (auto) 6.1 uL; Neutrophils % (auto) 73.5 % (37.0-80.0); Nucleated Red Blood Cells % 0.1 %; Platelet Count (auto) 190 10^3/uL (140-450); Red Blood Cells 4.12 10^6/uL (4.0-5.20); Red Cell Distribution Width 15.7 % (11.8-14.3); White Blood Cell 8.4 10^3/uL (4.4-10.8)
[2017-11-14 09:00] VITALS: BP 92/51
[2017-11-14] MEDS: PANTOPRAZOLE 40 MG/10 ML VIAL IV SCH ×2 (10:00→21:30)
[2017-11-14] MEDS: LISINOPRIL 20 MG TAB PO SCH (10:00)
[2017-11-14] MEDS: METOPROLOL SUCCINATE XL 50 MG TAB PO SCH (10:00)
[2017-11-14] MEDS ORDERED: VANCOMYCIN HCL 125MG/5ML ORAL SOL PO ONE (10:00)
[2017-11-14] MEDS: HYOSCYAMINE SULF 0.125 MG TAB PO PRN (10:58)
[2017-11-14] MEDS ORDERED: VANCOMYCIN HCL 125MG/5ML ORAL SOL PO SCH (12:00)
[2017-11-14 12:44] VITALS: BP 110/51
[2017-11-14] MEDS ORDERED: POTASSIUM CHL 10% (20 MEQ/15ML) 15ml ORAL SOLN PO ONE (12:45)
[2017-11-14] MEDS: metroNIDAZOLE 500 MG TAB PO SCH ×2 (13:34→21:30)
[2017-11-14] MEDS: VANCOMYCIN HCL 125MG/5ML ORAL SOL PO SCH ×3 (13:34→21:30)
[2017-11-14] MEDS ORDERED: SODIUM CHLORIDE 0.9% 1,000 ML IV ONE (15:45)
[2017-11-14] MEDS ORDERED: WARFARIN SODIUM 2.5 MG TAB PO ONE (17:00)
[2017-11-14 17:13] VITALS: BP 103/59
[2017-11-14] MEDS: ATORVASTATIN 20 MG TAB PO SCH (21:30)
[2017-11-14 22:00] VITALS: BP 116/51
[2017-11-14] MEDS: ALBUTEROL SULF 2.5 MG/0.5ML(0.5%) NEB SOLN NEB PRN (22:08)
[2017-11-15] MEDS: SODIUM CHLORIDE 0.9% 1,000 ML IV SCH ×4 (02:50→21:52)
[2017-11-15] MEDS: ALBUTEROL SULF 2.5 MG/0.5ML(0.5%) NEB SOLN NEB PRN (03:42)
[2017-11-15 05:00] VITALS: BP 123/69
[2017-11-15] MEDS: VANCOMYCIN HCL 125MG/5ML ORAL SOL PO SCH ×4 (05:39→21:52)
[2017-11-15] MEDS: metroNIDAZOLE 500 MG TAB PO SCH ×3 (05:40→21:51)
[2017-11-15 08:17] LABS: Basophils # (auto) 0 uL; Basophils % (auto) 0.7 % (0.0-2.0); Eosinophils # (auto) 0.2 uL; Hematocrit 35.4 % (36.0-46.0); Hemoglobin 11.9 g/dL (12.2-16.2); Lymphocytes # (auto) 1.2 uL; Lymphocytes % (auto) 17.6 % (10.0-50.0); Mean Corpuscular Hemoglobin 28.6 pg (28.0-32.0); Mean Corpuscular Hgb Conc. 33.6 g/dL (32.0-36.0); Mean Corpuscular Volume 85.2 fL (80.0-100.0); Monocytes # (auto) 0.7 uL; Monocytes % (auto) 10.5 % (0.0-12.0); Neutrophils # (auto) 4.6 uL; Neutrophils % (auto) 68.2 % (37.0-80.0); Platelet Count (auto) 208 10^3/uL (140-450); Red Blood Cells 4.16 10^6/uL (4.0-5.20); Red Cell Distribution Width 15.7 % (11.8-14.3); White Blood Cell 6.7 10^3/uL (4.4-10.8)
[2017-11-15 08:31] LABS: INR 2.73 (0.9-1.15); Partial Thromboplastin Time 40.3 sec (22.64-33.71); Prothrombin Time 30.1 sec (9.37-12.3)
[2017-11-15 08:33] LABS: Albumin 2.4 g/dL (3.4-5.0); Calcium 7.8 mg/dL (8.5-10.1); Magnesium 1.9 mg/dL (1.6-2.6); Potassium 3.4 mmol/L (3.5-5.1)
[2017-11-15 08:35] LABS: BUN/Creatinine Ratio 9.8; Total Protein 5.3 g/dL (6.4-8.2)
[2017-11-15 08:37] LABS: Bilirubin, Total 0.3 mg/dL (0.2-1.0)
[2017-11-15 09:00] VITALS: BP 125/70
[2017-11-15] MEDS: PANTOPRAZOLE 40 MG/10 ML VIAL IV SCH (09:31)
[2017-11-15 13:00] VITALS: BP 136/69
[2017-11-15] MEDS ORDERED: POTASSIUM CHL 10% (20 MEQ/15ML) 15ml ORAL SOLN PO ONE (13:45)
[2017-11-15] MEDS ORDERED: FAMOTIDINE 20 MG TAB PO ONE (13:45)
[2017-11-15 17:00] VITALS: BP 142/73
[2017-11-15] MEDS ORDERED: WARFARIN SODIUM 1 MG TAB PO ONE (17:00)
[2017-11-15] MEDS: FAMOTIDINE 20 MG TAB PO SCH (21:52)
[2017-11-15] MEDS: ATORVASTATIN 20 MG TAB PO SCH (21:52)
[2017-11-15 22:00] VITALS: BP 150/82
[2017-11-16 05:19] VITALS: BP 132/70
[2017-11-16] MEDS: metroNIDAZOLE 500 MG TAB PO SCH ×2 (05:53→14:33)
[2017-11-16] MEDS: VANCOMYCIN HCL 125MG/5ML ORAL SOL PO SCH ×3 (05:53→20:10)
[2017-11-16 06:20] LABS: Basophils # (auto) 0.1 uL; Basophils % (auto) 0.8 % (0.0-2.0); Eosinophils # (auto) 0.2 uL; Eosinophils % (auto) 3.4 % (0.0-7.0); Hematocrit 37.4 % (36.0-46.0); Hemoglobin 12.5 g/dL (12.2-16.2); Lymphocytes # (auto) 0.9 uL; Lymphocytes % (auto) 13.5 % (10.0-50.0); Mean Corpuscular Hemoglobin 28.6 pg (28.0-32.0); Mean Corpuscular Hgb Conc. 33.6 g/dL (32.0-36.0); Mean Corpuscular Volume 85.3 fL (80.0-100.0); Monocytes # (auto) 0.8 uL; Monocytes % (auto) 11.3 % (0.0-12.0); Neutrophils # (auto) 4.9 uL; Platelet Count (auto) 244 10^3/uL (140-450); Red Blood Cells 4.38 10^6/uL (4.0-5.20); Red Cell Distribution Width 15.6 % (11.8-14.3); White Blood Cell 6.9 10^3/uL (4.4-10.8)
[2017-11-16 06:31] LABS: INR 2.18 (0.9-1.15); Partial Thromboplastin Time 36.6 sec (22.64-33.71); Prothrombin Time 23.9 sec (9.37-12.3)
[2017-11-16 06:44] LABS: BUN/Creatinine Ratio 7.7; Calcium 8.2 mg/dL (8.5-10.1); Potassium 3.2 mmol/L (3.5-5.1)
[2017-11-16 08:00] VITALS: BP 133/73
[2017-11-16] MEDS: FAMOTIDINE 20 MG TAB PO SCH (10:39)
[2017-11-16] MEDS: HYDROcodone-ACET 5/325MG TAB PO PRN (10:39)
[2017-11-16] MEDS ORDERED: POTASSIUM CHL 20MEQ/100ML 100 ML IV ONE (11:45)
[2017-11-16] MEDS: POTASSIUM CHL 10% (20 MEQ/15ML) 15ml ORAL SOLN PO ONE ×2 (11:45→12:40)
[2017-11-16] MEDS: SODIUM CHLORIDE 0.9% 1,000 ML IV SCH (12:30)
[2017-11-16 12:42] VITALS: BP 151/82
[2017-11-16] MEDS ORDERED: POTASSIUM CHL 20 Meq TABLET PO ONE (14:00)
[2017-11-16 17:00] VITALS: BP 144/80
[2017-11-16] MEDS ORDERED: WARFARIN SODIUM 2.5 MG TAB PO ONE (17:00)
[2017-11-16 20:17] VITALS: BP 137/70
== END 2017-11-16 21:35 | disposition home or self-care (01) | DRG 872 ==
LOC: ER 13:19 → TELE 13:20 → TELE-WESTW 11-13 08:31 → WEST WING 11-15 16:02
PROVIDERS: ADMIT Nurse Practitioner; ATTEND Hospitalist
DX: A41.9 Sepsis, unspecified organism (principal); A04.71 Enterocolitis due to Clostridium difficile, recurrent; I82.491 Acute embolism and thrombosis of other specified deep vein of right lower extremity; K57.32 Diverticulitis of large intestine without perforation or abscess without bleeding; L03.115 Cellulitis of right lower limb; N39.0 Urinary tract infection, site not specified; I11.9 Hypertensive heart disease without heart failure; E78.5 Hyperlipidemia, unspecified; G89.29 Other chronic pain; M54.9 Dorsalgia, unspecified; G47.00 Insomnia, unspecified; E86.1 Hypovolemia; E87.6 Hypokalemia; F32.9 Major depressive disorder, single episode, unspecified; J44.9 Chronic obstructive pulmonary disease, unspecified; Z79.01 Long term (current) use of anticoagulants; Z86.711 Personal history of pulmonary embolism; Z82.49 Family history of ischemic heart disease and other diseases of the circulatory system; Z86.718 Personal history of other venous thrombosis and embolism; Z88.1 Allergy status to other antibiotic agents; Z79.899 Other long term (current) drug therapy; Z80.3 Family history of malignant neoplasm of breast
CPT/HCPCS: 36415; 71045; 74176; 80048; 80053; 81001; 83605; 83735; 84484; 85025; 85048; 85610; 85730; 87040; 87045; 87081; 87493; 87804; 87899; 93005; 94640; 96365; 96366; 96375; C9113; J2001; J2543; J3480; J3490

== ENCOUNTER 2020-05-31 09:48 | Inpatient (IN) | payer OTHER ==
[~2020-05-31] VITALS: Ht 167.6 cm; Wt 76.2 kg
[~2020-05-31 09:48] MED LIST changes: +HYDR-4069 PO; -LISI40TA PO; +LISI40TA11 PO; -METO25TA3 PO; +METO25TA36 PO; -NITR-48 PO; +NITR-87 PO; +WARF-196 PO; -WARPRX PO
[2020-05-31] MEDS ORDERED: SODIUM CHLORIDE 0.9% 500 ML IV ONE (10:00)
[2020-05-31 10:36] LABS: Basophils # (auto) 0 10 ^3/uL (0-0.2); Basophils % (auto) 0.6 % (0.0-2.0); Eosinophils # (auto) 0.1 10 ^3/uL (0-0.8); Eosinophils % (auto) 0.8 % (0.0-7.0); Hematocrit 42.2 % (36.0-46.0); Hemoglobin 14.1 g/dL (12.2-16.2); Lymphocytes # (auto) 0.9 10 ^3/uL (0.4-5.4); Lymphocytes % (auto) 11.7 % (10.0-50.0); Mean Corpuscular Hemoglobin 29.3 pg (28.0-32.0); Mean Corpuscular Hgb Conc. 33.4 g/dL (32.0-36.0); Mean Corpuscular Volume 87.9 fL (80.0-100.0); Monocytes # (auto) 0.5 10 ^3/uL (0-1.3); Neutrophils # (auto) 6.2 10 ^3/uL (1.6-8.6); Neutrophils % (auto) 79.9 % (37.0-80.0); Nucleated Red Blood Cells % 0.1 %; Platelet Count (auto) 257 10^3/uL (140-450); Red Blood Cells 4.81 10^6/uL (4.0-5.20); Red Cell Distribution Width 14.3 % (11.8-14.3); White Blood Cell 7.8 10^3/uL (4.4-10.8)
[2020-05-31 10:51] LABS: Urine Bacteria NONE SEEN /hpf (None Seen); Urine Blood 1+ /uL (Negative); Urine Mucus FEW (None Seen); Urine Specific Gravity 1.008 (1.001-1.035); Urine WBC 1 /hpf (0 - 5)
[2020-05-31 10:52] LABS: Albumin 3.5 g/dL (3.4-5.0); Anion Gap 6 (5-15); Blood Urea Nitrogen 10 mg/dL (7-18); Calcium 8.8 mg/dL (8.5-10.1); Carbon Dioxide 26 mmol/L (21-32); Chloride 107 mmol/L (98-107); Glucose 118 mg/dL (74-106); Magnesium 2.2 mg/dL (1.6-2.6); Potassium 3.6 mmol/L (3.5-5.1); Sodium 139 mmol/L (136-145)
[2020-05-31 10:59] LABS: Alanine Aminotransferase 39 U/L (13-56); Alkaline Phosphatase 79 U/L (45-117); Aspartate Aminotransferase 22 U/L (15-37); BUN/Creatinine Ratio 13.2; Bilirubin, Total 0.6 mg/dL (0.2-1.0); GFR African American 94 mL/min; GFR Non-African American 78 mL/min; Total Protein 6.9 g/dL (6.4-8.2)
[2020-05-31] MEDS ORDERED: ATROPINE SULF 1 MG/10ml SYR IV ONE (12:30)
[2020-05-31] MEDS ORDERED: NITROGLYCERIN 0.4 MG SL TAB SL PRN (12:30)
[2020-05-31] MEDS ORDERED: HYDROcodone-ACET 5/325MG TAB PO PRN (12:30)
[2020-05-31] MEDS ORDERED: IPRATROPIUM BROM 0.5 MG/2.5ML INH SOL NEB PRN (12:30)
[2020-05-31] MEDS ORDERED: ALBUTEROL SULF 2.5 MG/0.5ML(0.5%) NEB SOLN NEB PRN (12:30)
[2020-05-31] MEDS ORDERED: MORPHINE SULF INJ 2 MG/ML SYRINGE 1ML IV PRN (12:30)
[2020-05-31] MEDS ORDERED: ATOR10TA52 PO (12:46)
[2020-05-31] MEDS ORDERED: FURO1TAB33 PO (12:46)
[2020-05-31] MEDS ORDERED: METO25TA5 PO (12:55)
[2020-05-31 13:36] VITALS: BP 131/63
[2020-05-31] MEDS ORDERED: ATOR40TA52 PO (15:32)
[2020-05-31] MEDS ORDERED: WARF5TAB71 PO ×2 (15:32→15:33)
[2020-05-31] MEDS ORDERED: FAMO-12 PO (15:32)
[2020-05-31] MEDS ORDERED: ACET-1304 PO (15:33)
[2020-05-31] MEDS ORDERED: BACL5TAB2 PO (15:33)
[2020-05-31] MEDS ORDERED: LATA0.0019 LEFTEYE (15:37)
[2020-05-31] MEDS ORDERED: DORZ2SOL18 LEFTEYE (15:37)
[2020-05-31] MEDS ORDERED: levoFLOXacin 500MG 100 ML IV SCH (19:15)
[2020-05-31] MEDS ORDERED: methylPREDNISolone SOD SUCC 125 MG/2 ML VL IV ONE (19:15)
[2020-05-31] MEDS ORDERED: IOHEXOL 350 MG/ML 100ML IJ ONE (19:24)
[2020-05-31] MEDS ORDERED: FUROSEMIDE 20 MG TAB PO PRN (19:30)
[2020-05-31] MEDS ORDERED: WARFARIN SODIUM 5 MG TAB PO SCH ×2 (19:30)
[2020-05-31] MEDS ORDERED: FAMOTIDINE 20 MG TAB PO PRN (19:30)
[2020-05-31 20:23] LABS: INR 3.9 (0.9-1.15); Partial Thromboplastin Time 33.5 sec (23.0-31.2)
[2020-05-31 20:45] VITALS: BP 137/80
--- NOTE | 2020-05-31 20:45 | NUR ---
ADMISSION PATIENT ARRIVED FROM ER VIA W/C. PATIENT A&O X4. PLEASANT 80 Y/O FEMALE. I ORIENTED HER TO HER ROOM , MADE HER COMFORTABLE AND PERFORMED MY ASSESSMENT.PATIENT INSTRUCTED TO CALL FOR HELP AND PRN.
[2020-05-31] MEDS: DOXYCYCLINE 100 MG TAB/CAP PO SCH ×2 (22:00→22:27)
[2020-05-31] MEDS ORDERED: PATIENTS OWN MEDICATION (Lisinopril 40 MG) PO SCH (22:00)
[2020-05-31] MEDS ORDERED: ENOXAPARIN SOD 80 MG/0.8ML SYRINGE SC SCH (22:00)
[2020-05-31] MEDS ORDERED: DORZOLAMIDE TIMOLOL LEFTEYE SCH (22:00)
--- NOTE | 2020-05-31 22:00 | NUR ---
REFUSED VIBRAMYCIN . PATIENT SAID SHE HAD C-dIFF AND REFUSED TO TAKE THE ANTIBIOTIC UNTIL MD CLARIFIED WHY SHE NEEDS IT. Addendum: 06/01/20 at 0111 by Maddie Marques RN C-DIFF CLARIFICATION. C-DIFF WAS IN THE PAST NOT CURRENTLY.
[2020-05-31] MEDS: methylPREDNISolone SOD SUCC 40 MG/ML VL IV SCH (22:28)
[2020-05-31 23:03] VITALS: BP 137/80
[2020-06-01] MEDS ORDERED: IOHEXOL 350 MG/ML 100ML IJ ONE (01:33)
--- NOTE | 2020-06-01 01:46 | NUR ---
CT ANGIO PATIENT DOWN [place] ANGIO. PATIENT WAS TRANSPORTED BY W/C
[2020-06-01 05:30] VITALS: BP 137/69
[2020-06-01] MEDS: IPRATROPIUM BROM 0.5 MG/2.5ML INH SOL NEB SCH ×2 (05:50→10:54)
[2020-06-01] MEDS: ALBUTEROL SULF 2.5 MG/0.5ML(0.5%) NEB SOLN NEB SCH ×2 (05:50→10:54)
--- NOTE | 2020-06-01 08:00 | NUR ---
Opening Shift Note Assumed care of patient, awake, alert, and oriented. No S/S of distress/SOB or pain. Bed in lowest/locked position, bed rails up x2, call light within reach. Instructed on POC and to call for assist PRN. Will continue to monitor for changes Q1hr and PRN.
[2020-06-01 08:30] LABS: INR 3.14 (0.9-1.15); Partial Thromboplastin Time 37.9 sec (23.0-31.2)
[2020-06-01 08:46] VITALS: BP 142/73
[2020-06-01] MEDS: methylPREDNISolone SOD SUCC 40 MG/ML VL IV SCH (09:36)
[2020-06-01] MEDS: DOXYCYCLINE 100 MG TAB/CAP PO SCH (09:38)
[2020-06-01] MEDS ORDERED: LISINOPRIL 20 MG TAB PO SCH (10:00)
[2020-06-01] MEDS ORDERED: DORZOLAM-TIMOLOL(2/0.5%) OPTH(EYE) SOLN 10ML OP SCH (10:00)
[2020-06-01] MEDS ORDERED: FLUoxetine HCL 20 MG CAP PO SCH (10:00)
[2020-06-01] MEDS ORDERED: PATIENTS OWN MEDICATION (Fluoxetine Hcl 1 CAP) PO SCH (10:00)
--- NOTE | 2020-06-01 10:10 | NUR ---
ROUNDS DR CANSECO AT BEDSIDE
[2020-06-01] MEDS ORDERED: PRED20TA2 PO (12:27)
[2020-06-01] MEDS ORDERED: IPRAAER6 IN (12:27)
[2020-06-01] MEDS ORDERED: DOX100T PO (12:27)
[2020-06-01 13:00] VITALS: BP 141/79
[2020-06-01 14:21] VITALS: BP 141/79
--- NOTE | 2020-06-01 16:24 | NUR ---
Assessment Patient is an 80-year-old female who is alert and oriented. Prior to admission patient lived home alone and functioned independently. Per patient she has a walker, wheelchair and nebulizer for home use. Per patient she feels safe returning home and has great family support. Per patient she will return home to her prior living arrangements post discharge and family will transport her home. Advised patient there is a social service consult for home health safety evaluation and daily INR checks x 7 days. Informed patient she has the right to participate in all discharge planning. Patient verbalized understanding and agreed to discharge plan. Faxed clinical information to [facility]. Per Cynthia with [facility] [phone] patient has been accepted and service to start within 24-48hrs upon d/c day. Addendum: 06/01/20 at 1625 by ANNABEL CARDOSO Amended: Links added.
--- NOTE | 2020-06-01 16:36 | NUR ---
Discharge instructions given as ordered. Encourage to follow up with PMD as instructed. All questions and concerns addressed. Patient verbalized understanding. IV removed with catheter intact, pressure dressing applied. Telemetry unit returned to ICU. Patient taken to vehicle via wheelchair with all personal belongings, accompanied by staff. No distress noted at time of departure.
[2020-06-01] MEDS ORDERED: LATANOPROST 0.005 % OPTH(EYE) SOL 2.5ML LEFTEYE SCH (18:00)
[2020-06-01] MEDS ORDERED: PATIENTS OWN MEDICATION (Atorvastatin Calcium 1 TAB) PO SCH (18:00)
[2020-06-01] MEDS ORDERED: ATORVASTATIN 20 MG TAB PO SCH (22:00)
== END 2020-06-01 16:40 | disposition home health service (06) | DRG 309 ==
LOC: ER 09:48 → EDBD 09:48 → TELE 09:49 → TELE-CENTR 21:13
PROVIDERS: ADMIT Internal Medicine; ATTEND Internal Medicine
DX: R00.1 Bradycardia, unspecified (principal); J44.1 Chronic obstructive pulmonary disease with (acute) exacerbation; I82.511 Chronic embolism and thrombosis of right femoral vein; I48.91 Unspecified atrial fibrillation; I10 Essential (primary) hypertension; E78.5 Hyperlipidemia, unspecified; H54.62 Unqualified visual loss, left eye, normal vision right eye; M54.5 Low back pain; G89.29 Other chronic pain; F32.9 Major depressive disorder, single episode, unspecified; Z80.3 Family history of malignant neoplasm of breast; Z82.49 Family history of ischemic heart disease and other diseases of the circulatory system; T44.7X5A Adverse effect of beta-adrenoreceptor antagonists, initial encounter
CPT/HCPCS: 36415; 70450; 71045; 71275; 80053; 81001; 83735; 83880; 84484; 85025; 85610; 85730; 93306; 93970; 94640; 97163; G0378

== ENCOUNTER 2023-08-06 16:51 | Inpatient (IN) | payer OTHER ==
[~2023-08-06] VITALS: Ht 157.5 cm; Wt 71.3 kg
[~2023-08-06 16:51] MED LIST changes: +ACET-1304 PO; -ALPR0.254 PO; +ATOR40TA52 PO; +BACL5TAB2 PO; +DORZ2SOL18 LEFTEYE; +DOX100T PO; -DYA375C PO; -ENOX80IN SC; +FAMO-12 PO; +FURO1TAB33 PO; +IPRAAER6 IN; +LATA0.008 LEFTEYE; -LISI40TA11 PO; +LISI40TA16 PO; -LOVA40TA72 PO; -METO25TA36 PO; -NITR-87 PO; +PRED20TA2 PO; -WARF-196 PO; +WARF-66 PO
[2023-08-06 17:28] LABS: Basophils # (auto) 0.1 10 ^3/uL (0-0.2); Basophils % (auto) 0.4 % (0.0-2.0); Eosinophils # (auto) 0 10 ^3/uL (0-0.8); Eosinophils % (auto) 0.2 % (0.0-7.0); Hematocrit 45.9 % (36.0-46.0); Lymphocytes # (auto) 1.1 10 ^3/uL (0.4-5.4); Lymphocytes % (auto) 8.6 % (10.0-50.0); Mean Corpuscular Hemoglobin 28.2 pg (28.0-32.0); Mean Corpuscular Hgb Conc. 32.7 g/dL (32.0-36.0); Monocytes # (auto) 0.9 10 ^3/uL (0-1.3); Neutrophils % (auto) 83.8 % (37.0-80.0); Red Blood Cells 5.34 10^6/uL (4.0-5.20); Red Cell Distribution Width 13.8 % (11.8-14.3); White Blood Cell 13.2 10^3/uL (4.4-10.8)
[2023-08-06 17:42] LABS: INR 1.86 (0.9-1.15); Partial Thromboplastin Time 36.1 SEC (24.5-34.5); Prothrombin Time 18.8 sec (9.3-11.8)
[2023-08-06 17:53] LABS: Alanine Aminotransferase 31 U/L (7-40); Albumin 4.4 g/dL (3.2-4.8); Alkaline Phosphatase 87 U/L (46-116); Anion Gap 8 (5-15); Aspartate Aminotransferase 23 U/L (13-40); Bilirubin, Total 0.6 mg/dL (0.2-1.0); Blood Urea Nitrogen 12 mg/dL (9-23); Calcium 9.5 mg/dL (8.7-10.4); Carbon Dioxide 28 mmol/L (20-30); Chloride 100 mmol/L (98-107); Glucose 126 mg/dL (74-106); Potassium 3.5 mmol/L (3.5-5.1); Sodium 136 mmol/L (136-145); Total Protein 6.3 g/dL (5.7-8.2)
[2023-08-06 18:00] VITALS: PULSE 81; RESP 17; O2SAT 91
[2023-08-06 18:23] LABS: Urine Bacteria NONE SEEN /hpf (None Seen); Urine Blood Negative /uL (Negative); Urine Clarity Clear (Clear); Urine Color Colorless (Yellow); Urine Hyaline Cast FEW /lpf (0 - 2); Urine Protein, UAD Negative (Negative); Urine Specific Gravity 1.005 (1.001-1.035); Urine Urobilinogen Normal (Negative); Urine WBC <1 /hpf (0 - 5)
[2023-08-06] MEDS ORDERED: IPRATROPIUM BROM 0.5 MG/2.5ML INH SOL NEB ONE (20:30)
[2023-08-06] MEDS ORDERED: ALBUTEROL MEDNEB 2.5 mg/3ml NEB NEB ONE (20:30)
[2023-08-06] MEDS ORDERED: methylPREDNISolone SOD SUCC 125 MG/2 ML VL IV ONE (20:30)
[2023-08-06] MEDS ORDERED: PROCHLORPERAZINE EDISYLATE 5 MG/ML 2ML VIAL IM ONE (22:30)
[2023-08-06] MEDS ORDERED: ONDANSETRON HCL 4 MG/2 ML VIAL IV PRN (23:45)
[2023-08-06] MEDS ORDERED: DOCUSATE SOD 100 MG CAP PO PRN (23:45)
[2023-08-06] MEDS ORDERED: NITROGLYCERIN 0.4 MG SL TAB SL PRN (23:45)
[2023-08-06] MEDS ORDERED: MORPHINE SULFATE INJ 2 MG/ml SYRG IV PRN (23:45)
[2023-08-07] VITALS (16 sets, daily range): BP systolic 112–144; BP diastolic 46–72; PULSE 60–102; RESP 12–20; TEMP 98–98.7; O2SAT 92–100
[2023-08-07] MEDS: ALBUTEROL MEDNEB 2.5 mg/3ml NEB NEB SCH ×5 (00:13→23:10)
[2023-08-07] MEDS: IPRATROPIUM BROM 0.5 MG/2.5ML INH SOL NEB SCH ×5 (00:14→23:10)
[2023-08-07 00:19] LABS: Base Excess 0.2 mmol/L (-2.0-2.0)
[2023-08-07] MEDS: HYDROcodone-ACET 5/325MG TAB PO PRN ×3 (01:45→21:50)
[2023-08-07] MEDS ORDERED: IOHEXOL 350 MG/ML 100ML IJ ONE (02:22)
[2023-08-07 05:33] LABS: Basophils # (auto) 0 10 ^3/uL (0-0.2); Basophils % (auto) 0.1 % (0.0-2.0); Eosinophils # (auto) 0 10 ^3/uL (0-0.8); Hematocrit 43.6 % (36.0-46.0); Hemoglobin 14.5 g/dL (12.2-16.2); Lymphocytes # (auto) 0.4 10 ^3/uL (0.4-5.4); Lymphocytes % (auto) 4.4 % (10.0-50.0); Mean Corpuscular Hemoglobin 28.5 pg (28.0-32.0); Mean Corpuscular Hgb Conc. 33.2 g/dL (32.0-36.0); Mean Corpuscular Volume 85.8 fL (80.0-100.0); Monocytes # (auto) 0.1 10 ^3/uL (0-1.3); Neutrophils # (auto) 7.8 10 ^3/uL (1.6-8.6); Neutrophils % (auto) 94.5 % (37.0-80.0); Red Blood Cells 5.08 10^6/uL (4.0-5.20); Red Cell Distribution Width 13.7 % (11.8-14.3); White Blood Cell 8.2 10^3/uL (4.4-10.8)
[2023-08-07 05:38] LABS: Anion Gap 12 (5-15); Carbon Dioxide 26 mmol/L (20-30); Chloride 99 mmol/L (98-107); Potassium 3.4 mmol/L (3.5-5.1); Sodium 137 mmol/L (136-145)
[2023-08-07 05:39] LABS: Calcium 9.8 mg/dL (8.7-10.4)
[2023-08-07 05:44] LABS: BUN/Creatinine Ratio 12.8 (10.0-20.0); Blood Urea Nitrogen 12 mg/dL (9-23); Glucose 218 mg/dL (74-106)
[2023-08-07] MEDS: MECLIZINE HCL 25 MG TAB PO SCH ×3 (06:00→21:51)
[2023-08-07] MEDS: ACETAMINOPHEN 325 MG TAB PO PRN (09:28)
[2023-08-07] MEDS: methylPREDNISolone SOD SUCC 125 MG/2 ML VL IV SCH ×2 (09:49→21:49)
[2023-08-07] MEDS ORDERED: DOXYCYCLINE 100 MG TAB/CAP PO SCH (10:00)
[2023-08-07 14:50] LABS: INR 2.06 (0.9-1.15); Partial Thromboplastin Time 34.5 SEC (24.5-34.5); Prothrombin Time 20.6 sec (9.3-11.8)
[2023-08-07] MEDS ORDERED: WARFARIN SODIUM 2 MG TAB PO ONE (17:00)
[2023-08-07] MEDS: DOXYCYCLINE 100 MG TAB/CAP PO SCH (21:50)
[2023-08-08] VITALS (12 sets, daily range): BP systolic 111–137; BP diastolic 46–63; PULSE 63–89; RESP 16–20; TEMP 97.5–98.9; O2SAT 92–98
[2023-08-08 06:41] LABS: Basophils # (auto) 0.2 10 ^3/uL (0-0.2); Eosinophils # (auto) 0 10 ^3/uL (0-0.8); Hematocrit 42.1 % (36.0-46.0); Hemoglobin 13.9 g/dL (12.2-16.2); Lymphocytes # (auto) 0.7 10 ^3/uL (0.4-5.4); Mean Corpuscular Hemoglobin 28.6 pg (28.0-32.0); Mean Corpuscular Hgb Conc. 32.9 g/dL (32.0-36.0); Mean Corpuscular Volume 86.7 fL (80.0-100.0); Monocytes # (auto) 0.4 10 ^3/uL (0-1.3); Monocytes % (auto) 2.1 % (0.0-12.0); Neutrophils # (auto) 16.9 10 ^3/uL (1.6-8.6); Neutrophils % (auto) 92.9 % (37.0-80.0); Red Blood Cells 4.86 10^6/uL (4.0-5.20); Red Cell Distribution Width 13.8 % (11.8-14.3); White Blood Cell 18.2 10^3/uL (4.4-10.8)
[2023-08-08 06:50] LABS: Calcium 9.3 mg/dL (8.7-10.4); Chloride 101 mmol/L (98-107); Potassium 3.9 mmol/L (3.5-5.1); Sodium 137 mmol/L (136-145)
[2023-08-08] MEDS: MECLIZINE HCL 25 MG TAB PO SCH ×3 (06:50→22:00)
[2023-08-08 06:51] LABS: Anion Gap 6 (5-15); Carbon Dioxide 30 mmol/L (20-30)
[2023-08-08 06:56] LABS: BUN/Creatinine Ratio 16.2 (10.0-20.0); Blood Urea Nitrogen 11 mg/dL (9-23); Glucose 157 mg/dL (74-106)
[2023-08-08 06:59] LABS: INR 2.01 (0.9-1.15); Partial Thromboplastin Time 33.3 SEC (24.5-34.5); Prothrombin Time 20.2 sec (9.3-11.8)
[2023-08-08] MEDS: ALBUTEROL MEDNEB 2.5 mg/3ml NEB NEB SCH ×3 (07:18→18:00)
[2023-08-08] MEDS: IPRATROPIUM BROM 0.5 MG/2.5ML INH SOL NEB SCH ×3 (07:18→18:00)
[2023-08-08] MEDS: DOXYCYCLINE 100 MG TAB/CAP PO SCH ×2 (09:53→22:01)
[2023-08-08] MEDS: methylPREDNISolone SOD SUCC 125 MG/2 ML VL IV SCH ×2 (09:53→22:03)
[2023-08-08] MEDS: ACETAMINOPHEN 325 MG TAB PO PRN (14:49)
[2023-08-08] MEDS ORDERED: WARFARIN SODIUM 5 MG TAB PO ONE (21:30)
[2023-08-08] MEDS: HYDROcodone-ACET 5/325MG TAB PO PRN (22:00)
[2023-08-09] VITALS (11 sets, daily range): BP systolic 119–144; BP diastolic 50–83; PULSE 51–96; RESP 16–19; TEMP 36.2; O2SAT 85–99
[2023-08-09] MEDS: MECLIZINE HCL 25 MG TAB PO SCH ×2 (06:14→13:24)
[2023-08-09] MEDS: ALBUTEROL MEDNEB 2.5 mg/3ml NEB NEB SCH ×3 (07:04→13:01)
[2023-08-09] MEDS: IPRATROPIUM BROM 0.5 MG/2.5ML INH SOL NEB SCH ×3 (07:05→12:58)
[2023-08-09 07:19] LABS: Anion Gap 5 (5-15); Carbon Dioxide 33 mmol/L (20-30); Chloride 101 mmol/L (98-107); Potassium 4.4 mmol/L (3.5-5.1); Sodium 139 mmol/L (136-145)
[2023-08-09 07:20] LABS: Calcium 9.4 mg/dL (8.7-10.4)
[2023-08-09 07:25] LABS: Glucose 134 mg/dL (74-106)
[2023-08-09 07:26] LABS: BUN/Creatinine Ratio 21.4 (10.0-20.0); Blood Urea Nitrogen 15 mg/dL (9-23)
[2023-08-09 07:28] LABS: Basophils # (auto) 0 10 ^3/uL (0-0.2); Eosinophils # (auto) 0 10 ^3/uL (0-0.8); Hemoglobin 14.2 g/dL (12.2-16.2); Lymphocytes # (auto) 0.7 10 ^3/uL (0.4-5.4); Lymphocytes % (auto) 4.3 % (10.0-50.0); Mean Corpuscular Hemoglobin 28.4 pg (28.0-32.0); Mean Corpuscular Hgb Conc. 32.9 g/dL (32.0-36.0); Mean Corpuscular Volume 86.3 fL (80.0-100.0); Monocytes # (auto) 0.4 10 ^3/uL (0-1.3); Monocytes % (auto) 2.8 % (0.0-12.0); Neutrophils # (auto) 14.3 10 ^3/uL (1.6-8.6); Neutrophils % (auto) 92.9 % (37.0-80.0); Red Blood Cells 4.99 10^6/uL (4.0-5.20); Red Cell Distribution Width 14.1 % (11.8-14.3); White Blood Cell 15.4 10^3/uL (4.4-10.8)
[2023-08-09 07:30] LABS: INR 2.26 (0.9-1.15); Partial Thromboplastin Time 32.5 SEC (24.5-34.5); Prothrombin Time 22.5 sec (9.3-11.8)
[2023-08-09] MEDS: DOXYCYCLINE 100 MG TAB/CAP PO SCH (10:08)
[2023-08-09] MEDS: methylPREDNISolone SOD SUCC 125 MG/2 ML VL IV SCH (10:10)
[2023-08-09] MEDS ORDERED: ALBUTEROL SULF 2.5 MG/0.5ML(0.5%) NEB SOLN ONE (12:24)
[2023-08-09] MEDS: HYDROcodone-ACET 5/325MG TAB PO PRN (13:24)
[2023-08-09] MEDS ORDERED: WARFARIN SODIUM 5 MG TAB PO ONE (17:00)
[2023-08-09] MEDS ORDERED: ALBUTEROL SULF 2.5 MG/0.5ML(0.5%) NEB SOLN NEB SCH (18:00)
== END 2023-08-09 17:50 | disposition home or self-care (01) | DRG 189 ==
LOC: EDBD 16:51 → ER 16:51 → TELE 23:52 → TELE-WESTW 08-07 09:04
PROVIDERS: ADMIT Nurse Practitioner Family; ATTEND Nurse Practitioner Family
DX: J96.21 Acute and chronic respiratory failure with hypoxia (principal); I48.20 Chronic atrial fibrillation, unspecified; J44.1 Chronic obstructive pulmonary disease with (acute) exacerbation; I10 Essential (primary) hypertension; E78.5 Hyperlipidemia, unspecified; D72.829 Elevated white blood cell count, unspecified; G89.29 Other chronic pain; M54.50 Low back pain, unspecified; Z86.718 Personal history of other venous thrombosis and embolism; Z87.891 Personal history of nicotine dependence; Z79.01 Long term (current) use of anticoagulants; Z79.899 Other long term (current) drug therapy; Z80.3 Family history of malignant neoplasm of breast; Z82.49 Family history of ischemic heart disease and other diseases of the circulatory system
CPT/HCPCS: 36415; 36600; 70450; 71045; 71275; 72125; 80048; 80053; 81001; 82805; 84443; 84484; 85025; 85610; 85730; 93005; 93306; 94640; 97163; G0378

== ENCOUNTER 2024-11-19 15:18 | Emergency (ER) | payer OTHER ==
[~2024-11-19] VITALS: Ht 157.5 cm; Wt 58.0 kg
--- NOTE | 2024-11-19 16:08 | ED.PDOC ---
History of Present Illness HPI Comments This is an 84-year-old female who comes in with chief complaint of lower back pain. The patient has chronic back pain from a fall in September of this year. The patient states that now the pain is a 10/10. She tried taking her [place] at home with no relief so she called 911. EN route, the patient was given ac etaminophen IV 500 mg IV piggyback with some minimal relief. She states that she lives alone but has family check on her but at this time she is unable to ambulate. Denies any shortness a breath or chest pain. Chief Complaint: Back Pain Time Seen by MD: 15:26 Primary Care Provider: JULISSA Reviewed Notes: Nurses Notes, Roll Builder Notes, Medications, Allergies (Allergies listed above) Allergies: Coded Allergies: Levofloxacin (Verified Allergy, Unknown, 10/10/17) Lovastatin (Verified Allergy, Unknown, 08/06/23) Home Meds Active Scripts Ipratropium-Albuterol (COMBIVENT RESPIMAT) Respimat Aer, 1 DOSE IN Q6HPRN PRN, #120 DOSE Prov:LAMAR WHELAN MD 06/01/20 Prednisone (Prednisone) 20 Mg Tab, 1 DOSE PO UD, #13 TAB Take 60mg dailyx2 days then 40mg dailyx2 days then 20mg dailyx2 days then 10mg dailyx2 days Prov:LAMAR WHELAN MD 06/01/20 Doxycycline Monohydrate (Doxycycline Monohydrate) 100 Mg Tab, 100 MG PO Q12HR, #14 TAB Prov:LAMAR WHELAN MD 06/01/20 Reported Medications Latanoprost (LATANOPROST) 0.005 % Radha, 1 DROP LEFTEYE QPM, #7.5 ML 3 Refills 05/31/20 Dorzolamide-Timolol (Dorzolamide Hcl/Timolol M) 1 Ml Radha, 1 DROP LEFTEYE BID, #10 ML 6 Refills 05/31/20 Baclofen (Baclofen) Unknown Strength Tab, PO PRN PRN for MUSCLE SPASMS, TAB 05/31/20 Acetaminophen (Tylenol Extra Strength) 500 Mg Tab, 500 MG PO PRN, TAB 05/31/20 Warfarin Sodium (Warfarin Sodium) 5 Mg Tab, 5 MG PO DAILY EXCEPT MONDAY for 30 Days, MG TAKE WARFARIN 5 MG PO Q TU, W, TH, F, SA, CHÁVEZ 05/31/20 Atorvastatin Calcium (ATORVASTATIN CALCIUM) 40 Mg Tab, 1 TAB PO QPM, #90 TAB 3 Refills 05/31/20 Famotidine (Famotidine) 20 Mg Tab, 20 MG PO DAILYP PRN for HEARTBURN, TAB 05/31/20 Warfarin Sodium (Warfarin Sodium) 5 Mg Tab, 0.5 TAB PO QMONDAY, #90 TAB 1 Refill 05/31/20 Furosemide (Lasix) 20 Mg Tb, 1 TAB PO DAILYP PRN for SWELLING, #90 TAB 1 Refill 05/31/20 Hydrocodone-Acetaminophen (Hydrocodone/Acetaminophen 7.5-325 mg) 1 Tab Tab, 1 TAB PO QHSP, TAB 11/13/17 Albuterol Sulfate (VENTOLIN MDI) 90 Mcg Ih, 2 PUFF IN Q6HP 10/08/17 Fluoxetine Hcl (Fluoxetine Hcl) 40 Mg Cap, 1 CAP PO DAILY, #30 CAP 2 Refills 03/15/17 Lisinopril (Lisinopril) 40 Mg Tab, 40 MG PO BID for 30 Days, MG 03/15/17 Information Source: Patient, Emergency Med Personnel Mode of Arrival: EMS Severity: Moderate Timing: Hours Duration: Since onset Prehospital treatment: IVF, Other (Acetaminophen IV piggyback) Associated signs and symptoms Lower back pain Past Medical History PAST MEDICAL HISTORY: COPD, Depression, High Lipids, HTN MEDICAL APPARATUS MODEL MAKER History: No Pertinent MEDICAL APPARATUS MODEL MAKER History Family History Family History: Family hx of Cancer Social History Smoker: Non-Smoker Alcohol: Denies ETOH Use Drugs: Denies Drug Use Lives In: Home Constitutional: denies: chills, diaphoresis, fatigue, fever, malaise, sweats, weakness, others EENTM: denies: blurred vision, double vision, ear bleeding, ear discharge, ear drainage, ear pain, ear ringing, eye pain, eye redness, hearing loss, mouth pain, mouth swelling, nasal discharge, nose bleeding, nose congestion, nose pain, photophobia, tearing, throat pain, throat swelling, voice changes, others Respiratory: denies: cough, hemoptysis, orthopnea, SOB at rest, shortness of breath, SOB with excertion, stridor, wheezing, others Cardiovascular: denies: chest pain, dizzy spells, diaphoresis, Dyspnea on exertion, edema, irregular heart beat, left arm pain, lightheadedness, palpitations, PND, syncope, others Gastrointestinal: denies: abdomen distended, abdominal pain, blood streaked bowels, constipated, diarrhea, dysphagia, difficulty swallowing, hematemesis, melena, nausea, poor appetite, poor fluid intake, rectal bleeding, rectal pain, vomiting, others Genitourinary: denies: abnormal vagina bleeding, burning, dyspareunia, dysuria, flank pain, frequency, hematuria, incontinence, pain, , vagina discharge, urgency, others Neurological: denies: dizziness, fainting, headache, left sided numbness, left sided weakness, numbness, paresthesia, pre-existing deficit, right sided numbness, right sided weakness, seizure, speech problems, tingling, tremors, weakness, others Musculoskeletal: reports: back pain; denies: gout, joint pain, joint swelling, muscle pain, muscle stiffness, neck pain, others Integumetry: denies: bruises, change in color, change in hair/nails, dryness, laceration, lesions, lumps, rash, wounds, others Allergic/Immunocompromised: denies: Difficulty Healing, Frequent Infections, Hives, Itching, others Endocrine: denies: excessive hunger, excessive sweating, excessive thirst, excessive urination, flushing, intolerance to cold, intolerance to heat, unexplained weight gain, unexplained weight loss, others Psychiatric: denies: anxiety, bipolar disorder, depression, hopeless, panic disorder, schizophrenia, sleepless, suicidal, others Physical Exam General Appearance: Mild Distress, Thin HEENT: Normal ENT Inspection, Pharynx Normal, TMs Normal Neck: Full Range of Motion, Non-Tender, Normal, Normal Inspection Respiratory: Chest Non-Tender, Lungs Clear, No Accessory Muscle Use, No Respiratory Distress, Normal Breath Sounds Cardiovascular: No Edema, No JVD, No Murmur, No Gallop, Normal Peripheral Pulses, Regular Rate/Rhythm Breast Exam: Deferred Gastrointestinal: No Organomegaly, Non Tender, No Pulsatile Mass, Normal Bowel Sounds, Soft Genitalia: Deferred Pelvic: Deferred Rectal: Deferred Extremities: No calf tenderness, Normal capillary refill, Normal inspection, Normal range of motion, Non-tender, No pedal edema Musculoskeletal : Location: Bilateral Extremity Location: Back Apperance: Limited ROM, Tenderness: Moderate Neurologic: Alert, cpc coder II-XII nml as Tested, No Motor Deficits, Normal Affect, Normal Mood, No Sensory Deficits Cerebellar Function: Normal Reflexes: Normal Skin: Dry, Normal Color, Warm Lymphatic: No Adenopathy Was a procedure done? Was a procedure done?: No Differential Dx Considerations may include: Fracture, strain, contusion X-Ray, Labs, Meds, VS Vital Signs Date Time Temp Pulse Resp B/P (MAP) Pulse Ox O2 Delivery O2 Flow Rate FiO2 11/19/24 15:33 98.0 83 18 178/88 (118) 97 98.0 11/19/24 15:18 69 Lab Test 11/19/24 16:11 Range/Units White Blood Count 11.4 H 4.4-10.8 10^3/uL Red Blood Count 5.28 H 4.0-5.20 10^6/uL Hemoglobin 14.9 12.2-16.2 g/dL Hematocrit 45.9 36.0-46.0 % Mean Corpuscular Volume 86.8 80.0-100.0 fL Mean Corpuscular Hemoglobin 28.3 28.0-32.0 pg Mean Corpuscular Hemoglobin Concent 32.6 32.0-36.0 g/dL Red Cell Distribution Width 15.0 H 11.8-14.3 % Platelet Count 342 140-450 10^3/uL Mean Platelet Volume 7.3 6.9-10.8 fL Neutrophils (%) (Auto) 74.1 37.0-80.0 % Lymphocytes (%) (Auto) 15.0 10.0-50.0 % Monocytes (%) (Auto) 9.8 0.0-12.0 % Eosinophils (%) (Auto) 0.7 0.0-7.0 % Basophils (%) (Auto) 0.4 0.0-2.0 % Neutrophils # (Auto) 8.4 1.6-8.6 10 ^3/uL Lymphocytes # (Auto) 1.7 0.4-5.4 10 ^3/uL Monocytes # (Auto) 1.1 0-1.3 10 ^3/uL Eosinophils # (Auto) 0.1 0-0.8 10 ^3/uL Basophils # (Auto) 0.1 0-0.2 10 ^3/uL Nucleated Red Blood Cells 0.0 % Sodium Level 139 136-145 mmol/L Potassium Level 3.3 L 3.5-5.1 mmol/L Chloride Level 103 98-107 mmol/L Carbon Dioxide Level 25 20-31 mmol/L Anion Gap 11 5-15 Blood Urea Nitrogen 9 9-23 mg/dL Creatinine 0.68 0.550-1.02 mg/dL Glomerular Filtration Rate Calc 86 >90 mL/min BUN/Creatinine Ratio 13.2 10.0-20.0 Serum Glucose 112 H 74-106 mg/dL Calcium Level 10.3 8.7-10.4 mg/dL IV Hep-Lock was established The patient was being given morphine 4 mg IV push for the pain The patient was given Zofran 4 mg IV push for the nausea We are calling the hospitalist for possible transferred to a [facility] facility We did speak with Dr. Mata and he is setting of the patient to go to [facility] They will be picking up the patient later. They are sending medications home with the patient. Images Reviewed?: Images reviewed and evaluated by me Time of 1ST Reevaluation: 16:07 Reevaluation 1ST: Unchanged Patient Education/Counseling: Diagnosis, Treatment, Prognosis Family Education/Counseling: No Family Present Departure 1 Departure Time of Disposition: 18:58 Impression: Primary Impression: Musculoskeletal pain Additional Impression: Chronic back pain Qualified Codes: M54.50 - Low back pain, unspecified; G89.29 - Other chronic pain Disposition: 01 HOME / SELF CARE / HOMELESS Condition: Fair Critical Care Note Critical Care Time?: No Stability Stability form required: No Heart Score Heart Score: Heart Score Response (Comments) Value History N/A 0 EKG N/A 0 Age N/A 0 Risk Factors N/A 0 Troponin N/A 0 Total 0 MARCELINO RAND MD Nov 19, 2024 16:08
--- NOTE | 2024-11-19 16:10 | ECG ---
[facility] Test Date: 2024-11-19 Test Time: 15:15:14 Pat Name: CONNOR GARCIA Department: er Room: Gender: F Service Station Cashier: elijah : 1940 Requested By: EMERGENCY EMERGENCY Order Number: [id number] Reading MD: Nigel Ochoa Measurements Intervals [place] Rate: 69 P: 71 NM: 172 QRS: 35 QRSD: 97 T: 76 QT: 430 QTc: 461 Interpretive Statements Sinus rhythm Anteroseptal infarct, age indeterminate Electronically Signed On 11-20-2024 22:39:38 PDT by Nigel Ochoa Please click the below link to view image of tracing.
[2024-11-19 16:33] LABS: Basophils # (auto) 0.1 10 ^3/uL (0-0.2); Basophils % (auto) 0.4 % (0.0-2.0); Eosinophils # (auto) 0.1 10 ^3/uL (0-0.8); Eosinophils % (auto) 0.7 % (0.0-7.0); Hematocrit 45.9 % (36.0-46.0); Hemoglobin 14.9 g/dL (12.2-16.2); Lymphocytes # (auto) 1.7 10 ^3/uL (0.4-5.4); Mean Corpuscular Hemoglobin 28.3 pg (28.0-32.0); Mean Corpuscular Hgb Conc. 32.6 g/dL (32.0-36.0); Mean Corpuscular Volume 86.8 fL (80.0-100.0); Monocytes # (auto) 1.1 10 ^3/uL (0-1.3); Monocytes % (auto) 9.8 % (0.0-12.0); Neutrophils # (auto) 8.4 10 ^3/uL (1.6-8.6); Neutrophils % (auto) 74.1 % (37.0-80.0); Platelet Count (auto) 342 10^3/uL (140-450); Red Blood Cells 5.28 10^6/uL (4.0-5.20); White Blood Cell 11.4 10^3/uL (4.4-10.8)
[2024-11-19 16:57] LABS: Anion Gap 11 (5-15)
[2024-11-19 17:03] LABS: BUN/Creatinine Ratio 13.2 (10.0-20.0)
--- NOTE | 2024-11-19 17:06 | DVHINCON2 ---
Date Seen: Nov 19, 2024 Referring Physician ER physician. Reason for Consultation Acute on chronic back pain. History of Present Illness 84-year-old female who has a past medical history of hypertension, COPD, chronic AFib currently on Coumadin presented to the hospital with chief complaint of lower back pain. Patient said that she had a fall in September of this year. Pain was 10/10. Patient received pain meds in the ED as well as IV fluids. I was approached for possible admission for pain management. Patient can be discharged to alf facility for pain management. Pull Tab Dealer were consulted who we will arrange alf facility for pain management. Past Medical History COPD Hypertension Chronic AFib Family History: Alcoholism G8 MOTHER Cardiovascular disease G8 MOTHER G8 FATHER FH: congestive heart failure G8 MOTHER G8 FATHER Hypercholesterolemia G8 MOTHER G8 FATHER Hypertension Malignant neoplasm of breast G8 SISTER Prostate carcinoma G8 BROTHER Allergies: Coded Allergies: Levofloxacin (Verified Allergy, Unknown, 10/10/17) Lovastatin (Verified Allergy, Unknown, 08/06/23) Home Meds Active Scripts Methylprednisolone (Medrol Dosepak) 4 Mg Carson, 4 MG PO UD, #21 TAB UAD Prov:MONIKA GRAJEDA MD 11/19/24 Ipratropium-Albuterol (COMBIVENT RESPIMAT) Respimat Aer, 1 DOSE IN Q6HPRN PRN, #120 DOSE Prov:LAMAR WHELAN MD 06/01/20 Prednisone (Prednisone) 20 Mg Tab, 1 DOSE PO UD, #13 TAB Take 60mg dailyx2 days then 40mg dailyx2 days then 20mg dailyx2 days then 10mg dailyx2 days Prov:LAMAR WHELAN MD 06/01/20 Doxycycline Monohydrate (Doxycycline Monohydrate) 100 Mg Tab, 100 MG PO Q12HR, #14 TAB Prov:LAMAR WHELAN MD 06/01/20 Reported Medications Latanoprost (LATANOPROST) 0.005 % Radha, 1 DROP LEFTEYE QPM, #7.5 ML 3 Refills 05/31/20 Dorzolamide-Timolol (Dorzolamide Hcl/Timolol M) 1 Ml Radha, 1 DROP LEFTEYE BID, #10 ML 6 Refills 05/31/20 Baclofen (Baclofen) Unknown Strength Tab, PO PRN PRN for MUSCLE SPASMS, TAB 9/27/20 Acetaminophen (Tylenol Extra Strength) 500 Mg Tab, 500 MG PO PRN, TAB 05/31/20 Warfarin Sodium (Warfarin Sodium) 5 Mg Tab, 5 MG PO DAILY EXCEPT MONDAY for 30 Days, MG TAKE WARFARIN 5 MG PO Q TU, W, TH, F, SA, CHÁVEZ 05/31/20 Atorvastatin Calcium (ATORVASTATIN CALCIUM) 40 Mg Tab, 1 TAB PO QPM, #90 TAB 3 Refills 05/31/20 Famotidine (Famotidine) 20 Mg Tab, 20 MG PO DAILYP PRN for HEARTBURN, TAB 05/31/20 Warfarin Sodium (Warfarin Sodium) 5 Mg Tab, 0.5 TAB PO QMONDAY, #90 TAB 1 Refill 05/31/20 Furosemide (Lasix) 20 Mg Tb, 1 TAB PO DAILYP PRN for SWELLING, #90 TAB 1 Refill 05/31/20 Hydrocodone-Acetaminophen (Hydrocodone/Acetaminophen 7.5-325 mg) 1 Tab Tab, 1 TAB PO QHSP, TAB 11/13/17 Albuterol Sulfate (VENTOLIN MDI) 90 Mcg Ih, 2 PUFF IN Q6HP 10/08/17 Fluoxetine Hcl (Fluoxetine Hcl) 40 Mg Cap, 1 CAP PO DAILY, #30 CAP 2 Refills 03/15/17 Lisinopril (Lisinopril) 40 Mg Tab, 40 MG PO BID for 30 Days, MG 03/15/17 Vital Signs Vital Signs Date Time Temp Pulse Resp B/P (MAP) Pulse Ox O2 Delivery O2 Flow Rate FiO2 11/19/24 15:33 98.0 83 18 178/88 (118) 97 98.0 Labs/Diagnostic Data Labs Test 11/19/24 16:11 Range/Units White Blood Count 11.4 H 4.4-10.8 10^3/uL Red Blood Count 5.28 H 4.0-5.20 10^6/uL Hemoglobin 14.9 12.2-16.2 g/dL Hematocrit 45.9 36.0-46.0 % Mean Corpuscular Volume 86.8 80.0-100.0 fL Mean Corpuscular Hemoglobin 28.3 28.0-32.0 pg Mean Corpuscular Hemoglobin Concent 32.6 32.0-36.0 g/dL Red Cell Distribution Width 15.0 H 11.8-14.3 % Platelet Count 342 140-450 10^3/uL Mean Platelet Volume 7.3 6.9-10.8 fL Neutrophils (%) (Auto) 74.1 37.0-80.0 % Lymphocytes (%) (Auto) 15.0 10.0-50.0 % Monocytes (%) (Auto) 9.8 0.0-12.0 % Eosinophils (%) (Auto) 0.7 0.0-7.0 % Basophils (%) (Auto) 0.4 0.0-2.0 % Neutrophils # (Auto) 8.4 1.6-8.6 10 ^3/uL Lymphocytes # (Auto) 1.7 0.4-5.4 10 ^3/uL Monocytes # (Auto) 1.1 0-1.3 10 ^3/uL Eosinophils # (Auto) 0.1 0-0.8 10 ^3/uL Basophils # (Auto) 0.1 0-0.2 10 ^3/uL Nucleated Red Blood Cells 0.0 % Assessment 84-year-old female who needs treatment under the hospital with back pain. Patient does have known history of COPD, hypertension, chronic AFib. Patient s tated that she had a fall recently. 1. Chronic back pain status post fall Chronic AFib Hypertension COPD not in exacerbation -pain meds as needed, consult high school social studies teacher for placement. Plan discussed with: Other (ER physician.) Date of Service: Nov 19, 2024 Billing Provider: MONIKA GRAJEDA MD Common Visit Codes: NOT BILLABLE MONIKA GRAJEDA MD Nov 19, 2024 17:06
[2024-11-19 17:09] LABS: Blood Urea Nitrogen 9 mg/dL (9-23); Calcium 10.3 mg/dL (8.7-10.4); Carbon Dioxide 25 mmol/L (20-31); Chloride 103 mmol/L (98-107); Glucose 112 mg/dL (74-106); Potassium 3.3 mmol/L (3.5-5.1); Sodium 139 mmol/L (136-145)
[2024-11-19] MEDS ORDERED: METH4PAK PO (19:10)
[2024-11-19] MEDS ORDERED: HYDR-4902 PO (19:10)
[2024-11-19] MEDS ORDERED: HYDROcodone-ACET 5/325MG TAB PO PRN (19:15)
[2024-11-19 20:37] VITALS: PULSE 83; RESP 18; O2SAT 97
[2024-11-19] MEDS: MORPHINE SULFATE 4 MG/ML SYR/VIAL IV ONE (20:41)
[2024-11-19] MEDS: ONDANSETRON HCL 4 MG/2 ML VIAL IV ONE (20:41)
[2024-11-19 21:11] VITALS: BP 131/88; PULSE 85; RESP 16; TEMP 98.3; O2SAT 95
== END 2024-11-19 21:11 | disposition home or self-care (01) ==
LOC: ER 15:18 → EDBD 15:18 → ER 21:11
DX: G89.29 Other chronic pain (principal); M54.59 Other low back pain; J44.9 Chronic obstructive pulmonary disease, unspecified; E78.5 Hyperlipidemia, unspecified; I10 Essential (primary) hypertension; Z88.6 Allergy status to analgesic agent; Z79.899 Other long term (current) drug therapy
CPT/HCPCS: 36415; 80048; 85025; 93005; 96374; 96375; 99284; J2270; J2405